=== PATIENT | male | born 1945 | race Caucasian/White ===

== ENCOUNTER 2023-09-03 12:45 | Outpatient (AMB) | payer MEDICARE, SELFPAY ==
--- NOTE | 2023-09-03 13:06 | MHC.OFFVIS ---
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 He has a 78-year-old male otherwise very healthy has had no prior significant cardiovascular risk factors of cardiovascular disease history. In generally good health. In February he would 1 episode when he developed palpitation subsequently developed significant jaw pain bilaterally. He had this pain last for couple of hours. He then rested but then had recurrent chest pain whole night. Did not seek emergency care. Following day he notices this sharp pain with exertion. However the symptoms dissipated. Since then he had 3 more episodes of jaw pain prior to the end of the year but did not pay much attention to it as the pain was less severe. Every time he has had jaw pain these symptoms of palpitations precede the jaw pain. Since then he started noticing irregular heartbeat with fluttering in his chest last thumping in his chest. The symptoms happen almost on every day basis. This symptoms are bothersome to him. However these are not life-limiting at this point time. Since then he has had 2 more episodes of jaw discomfort after thumping in his chest mostly at nighttime. Symptoms subsided very quickly. He has not had any heart failure symptoms. No lightheadedness, syncope. Currently not taking any significant medications. [facility] Medical History History of trigger finger Surgical History Hx of cholecystectomy Hx of shoulder surgery History of back surgery Hx of hernia repair Family History Father No problems noted. Mother No problems noted. Social History Patient Tobacco Use Status: Never used Tobacco Review of Systems Const Denies chills, Denies daytime sleepiness, Denies fatigue, Denies fever(s), Denies frequent falls, Denies poor appetite, Denies snoring, Denies stops breathing during sleep, Denies weakness, Denies weight gain and Denies weight loss Eyes Denies loss of vision ENT Denies dizziness and Denies hearing loss Card Denies chest pain, Denies claudication, Denies leg edema, Denies lightheadedness, Denies palpitations, Denies dyspnea, Denies dyspnea on exertion and Denies orthopnea Resp Denies cough, Denies excessive phlegm production, Denies dyspnea, Denies dyspnea on exertion, Denies snoring and Denies wheezing GI Denies abdominal pain, Denies hematochezia, Denies change in bowel habits, Denies nausea and Denies vomiting Denies dysuria and Denies urinary frequency Musc Denies arthralgias, Denies muscle weakness, Denies numbness and Denies other (frequent falls) Skin/Breast Denies nail changes and Denies rash Neuro Denies Abnormal speech present, Denies dizziness, Denies frequent falls, Denies loss of vision, Denies memory loss, Denies numbness and Denies weakness Psych Denies depression and Denies memory loss Endo Denies fatigue and Denies palpitations Carlo/Lymph Reports easy bruising and Reports other (anemia) Aller/Immun Denies wheezing Physical Exam Vital Signs: Last Vital Signs Pulse 61 09/03/23 13:10 BP 110/64 09/03/23 13:10 BMI result Body Mass Index 27.5 Const General: cooperative, comfortable, no acute distress, well developed, alert and awake Nutritional Appearance: average body habitus and well nourished Orientation/consciousness: patient oriented x3 Limitations: no limitations HEENT Head: Yes normocephalic and Yes atraumatic Neck Neck: Yes trachea midline, Yes supple and Yes no JVD Resp Effort & Inspection: normal respiratory effort Auscultation: clear to auscultation bilaterally Cardio Jugular venous distension: no JVD Palpation: normal PMI Rate: regular rate Rhythm: regular rhythm Heart sounds: S1 normal heart sound present, S2 normal heart sound present, no click, no gallops, no murmurs and no rubs GI Auscultation: normal bowel sounds Skin General skin exam: no rashes or lesions noted Neuro General: patient oriented x3 and no focal motor deficits Speech: No Abnormal speech present Extrem General: Yes no clubbing, cyanosis or edema Psych Appearance: grossly normal Office Procedures EKG Details: EKG shows normal sinus rhythm with normal EKG 34391-[id number], Complete Assessment & Plan Assessment & Plan (1) Atypical chest pain: Code(s): R07.89 - Other chest pain Category: Medical Plan: Patient with atypical discomfort with jaw discomfort which are concerning for myocardial ischemia although symptoms are not always typically present. However he had a very severe episode last February which could have been in his acute myocardial ischemic event. Since then he has had increased symptoms of palpitation, see below which were present possibly PVCs which could also be driven by myocardial ischemia. Given his baseline normal EKG in good functional capacity I have advised him to undergo stress test as soon as possible probably tomorrow. Further findings and workup based on the findings of the stress test. If at high workload is EKG is negative then probably alternative etiology for his chart discomfort including acid reflux disease needs to be pursued. If he has suboptimal stress test and/or as abnormal stress test will require further evaluation with either an angiogram or more imaging stress test. This was discussed with him. He understands agrees. He is advised to avoid strenuous exertion till we complete the stress testing. Meanwhile I have start him on aspirin therapy also advise metoprolol 25 mg daily. (2) Palpitations: Code(s): R00.2 - Palpitations Category: Medical Plan: Symptoms of palpitation highly suggestive extra systoles most likely PVCs. Further workup for will be performed with a Holter monitor to assess for presence of PVCs and also frequency of PVCs. Will start him on Toprol-XL as above. Will also obtain echocardiogram to evaluate for cardiac structure and function and to evaluate for any other abnormalities that could potentially cause his underlying cardiac arrhythmias. This was discussed with him. Avoidance of stimulants was discussed. Stress mitigation strategies were discussed. Will follow up in the clinic after above-mentioned test. Thank you for allowing me to partake in his care Orders: Orders CA echo transthoracic complete Today R00.2 - Palpitations ECG 5 day holter monitor Today R00.2 - Palpitations CA stress test Today R07.89 - Other chest pain Medications: New metoprolol succinate ER (Toprol XL) 25 mg PO DAILY 30 tabs 3RF R00.2 - Palpitations aspirin (Ecotrin Low Strength) 81 mg PO DAILY 30 tabs 1RF R00.2 - Palpitations Coding Level of Care Code New Pt Level 4 (90249) Diagnoses Atypical chest pain R07.89 Palpitations R00.2 CPT Codes EKG - CPT: 45603-Yisadlarryjulfbue, Complete ([id number])
[2023-09-03 13:10] VITALS: BP 110/64; PULSE 61; BMI 27.5
== END 2023-09-03 13:47 | disposition home or self-care (01) ==
PROVIDERS: PCP Internal Medicine; Visit Provider Internal Medicine Cardiovascular Disease
DX: R07.89 Other chest pain (principal); R00.2 Palpitations
CPT/HCPCS: 93010; 99204

== ENCOUNTER → 2023-09-03 12:45 | Outpatient (BNVA) | payer MEDICARE, SELFPAY | PROVIDERS: PCP Internal Medicine; Visit Provider Internal Medicine Cardiovascular Disease | DX: R07.89 Other chest pain (principal); R00.2 Palpitations | CPT/HCPCS: 93005; 99202 ==

== ENCOUNTER → 2023-09-04 09:48 | Outpatient (REF) | payer MEDICARE, SELFPAY ==
--- NOTE | 2023-09-04 09:53 | CA_ITS ---
Acquisition Time: 2023-09-04 09:58:28 Total Exercise Time: 00:06:42 Test Indications: jaw pain Medications: Protocol: BRIT Max HR: 122 BPM 85% of Pred: 143 BPM Max BP: 148/060 mmHG Max Work Load: 7.8 METS Exercise stress test exercise 6 min 42 sec of Brit protocol achieving 86% MPHR, with 3/10 left sided chest pain at peak, with mild SOB, without dizzness, without jaw pain, with isolated PACs, with normotensive response to exercise, without EKG changes. Equivocal stress test. Chest pain resolved withr est. Test reviewed with Dr. Angelo. Referred By: Janes Haney Overread By: Hilayr Martinez
== END ==
LOC: HO.CARD 09:48
PROVIDERS: PCP Internal Medicine; Visit Provider Internal Medicine Cardiovascular Disease
DX: R07.89 Other chest pain (principal)
CPT/HCPCS: 93017

== ENCOUNTER → 2023-09-04 09:53 | Outpatient (BNV) | payer MEDICARE, SELFPAY | PROVIDERS: PCP Internal Medicine; Visit Provider Nurse Practitioner | DX: R07.2 Precordial pain (principal); R06.02 Shortness of breath | CPT/HCPCS: 93016; 93018 ==

== ENCOUNTER → 2023-09-19 13:48 | Outpatient (REF) | payer MEDICARE, SELFPAY ==
--- NOTE | 2023-09-19 13:52 | CA_ITS ---
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 There is mildly increased left ventricular wall thickness. The visually estimated ejection fraction is between 55-60%. Normal global longitudinal strain. -20%. - E/E prime ratio is between 8 and 15 consistent with indeterminate filling pressures. - Mildly increased right ventricular cavity size. There is normal right ventricular systolic function. - The left atrium is moderately dilated. - There is mild mitral valve regurgitation. - There is mild dilatation of the sinuses of Valsalva measuring 3.80 cm and mild dilatation of the ascending aorta measuring 3.90 cm. Findings Left Ventricle Normal left ventricular size and systolic function. There is mildly increased left ventricular wall thickness. The visually estimated ejection fraction is between 55-60%. There is no evidence of regional wall motion abnormalities. Abnormal diastolic function is noted. Spectral Doppler is indicative of a pseudonormal filling pattern. E/E prime ratio is between 8 and 15 consistent with indeterminate filling pressures. Right Ventricle Mildly increased right ventricular cavity size. There is normal right ventricular systolic function. Atria The left atrium is moderately dilated. The right atrium is mildly dilated. Aortic Valve There is a normal trileaflet aortic valve. There is mild thickening of the aortic valve. There is no aortic valve stenosis. There is no aortic valve regurgitation. Mitral Valve Normal mitral valve structure and function. There is mild mitral valve regurgitation. There is no mitral valve stenosis. Pulmonic Valve Normal pulmonic valve structure and function. There is no pulmonic valve regurgitation. Tricuspid Valve Normal tricuspid valve structure. There is trace tricuspid valve regurgitation. Normal right atrial pressure. There is no evidence of pulmonary hypertension. Great Vessels There is mild dilatation of the sinuses of Valsalva measuring 3.80 cm and mild dilatation of the ascending aorta measuring 3.90 cm. The visualized portions of the pulmonary artery and branches are normal. Venous The inferior vena cava is normal in size and collapses greater than 50% with inspiration. Pericardium/Pleural There is no evidence of pericardial effusion. Measurements 2D Linear Measurements IVSd: 1.25 0.6-0.9/0.6-1.0 cm LVIDd: 5.38 3.9-5.3/4.2-5.9 cm LVIDd Index: 2.62 2.4-3.2/2.2-3.1 cm/m2 LVIDs: 3.34 2.0-3.6 cm LVPWd: 1.18 0.7-1.1 cm LA Diam: 4.10 2.7-3.8/3.0-4.0 cm LAIDs Index: 2.00 1.5-2.3 cm/m2 LV Mass: 333.49 67-162/88-224 g LV Mass Index: 162.68 43-95/49-115 g/m2 LVOT Diam: 2.00 3.0+(-)1.3 cm 2D Systolic Function EF 4C: 64.30 >55% EF 2C: 60.60 >55% EF BiP: 61.80 >55% Mitral Valve MV Pk E: 0.72 MV PK A: 0.39 MV Decel Time: 332.00 E/A: 1.90 E'Lateral: 7.72 E'Medial: 7.51 E/E' Med: 9.50 E/E' Lat: 9.30 PHT: 97.00 MVA PHT: 2.27 Decel Archuleta: 2.15 Aortic Valve AoV Pk Chucho: 1.12 AoV Mn Chucho: 0.79 AoV VTI: 0.27 AoV Pk Grad: 5.00 Aov Mn Grad: 3.00 LIBORIO Cont.VTI: 2.38 LVOT LVOT Pk Chucho: 0.87 LVOT Mn Chucho: 0.57 LVOT VTI: 0.21 LVOT Pk Grad: 3.00 LVOT Mn Grad: 2.00 LVOT Diam: 2.00 LVOT Area: 3.14 Diastolic Function MV Pk E: 0.72 MV Pk A: 0.39 E/A: 1.90 E'Medial: 7.51 E/E' Med: 9.50 E' Laterial: 7.72 E/E' Lat: 9.30 Right Ventricle TAPSE (mm): 36.90 TVS' Chucho: 13.30 Tricuspid Valve TR Pk Chucho: 1.61 TR Pk Grad: 10.00 RA Press: 3.00 RVSP: 13.00 Great Vessels Aorta Sinus of Valsalva: 3.80 2.0-3.5 cm Ao Asc: 3.90 2.1-3.4 cm Pulmonary Valve PV Pk Chucho: 1.45 Peak PV Grad: 8.00 Updated in Other Vendor System with Status of Final Jb Angelo MD electronically signed on 09/23/2023 4:00:02 PM with status of Final
--- NOTE | 2023-09-19 13:52 | HM_ITS ---
* Total monitoring time 4 days. * Underlying rhythm is sinus with an average rate of 53/Min. Range 41 to 78/Min. * Rare supraventricular and ventricular ectopy. * No sustained arrhythmias. * No significant pauses or high-grade AV blocks. * Patient markers used in association with sinus rhythm, sinus bradycardia, supraventricular ectopy. * Diary symptoms of flutter, strange feeling in chest, chest pain correlate with sinus rhythm, supraventricular ectopy. MTDD
== END ==
LOC: HO.CARD 13:48
PROVIDERS: PCP Internal Medicine; Visit Provider Internal Medicine Cardiovascular Disease
DX: R00.2 Palpitations (principal)
CPT/HCPCS: 93242; 93306

== ENCOUNTER → 2023-09-19 13:52 | Outpatient (BNV) | payer MEDICARE, SELFPAY | PROVIDERS: PCP Internal Medicine; Visit Provider Internal Medicine Cardiovascular Disease | DX: I34.0 Nonrheumatic mitral (valve) insufficiency (principal) | CPT/HCPCS: 93244; 93306; 93356 ==

== ENCOUNTER → 2023-12-12 09:21 | Outpatient (REF) | payer MEDICARE, SELFPAY ==
--- NOTE | ~2023-12-12 | NM_ITS ---
EXERCISE MYOCARDIAL PERFUSION STUDY INDICATION: Chest pain TECHNIQUE: The patient was brought in for an exercise perfusion study on 12/12/2023. Patient performed exercise as per Nirmal protocol and was injected 30 mCi of sestamibi once target heart rate was achieved. Images were obtained using the SPECT gamma camera interlaced with the gating device. Images were obtained in supine position. Resting perfusion study was performed on 12/13/2023. Patient was administered 30 mCi of sestamibi intravenously at rest. Images were then obtained in supine position. Images were processed with the software and compared side to side in short axis, horizontal long axis and vertical long axis views. Total DLP 130mGy-cm. FINDINGS: Raw images were reviewed. Arms by the patient's side. The stress perfusion study showed diminished tracer uptake in the distal part of inferolateral wall there is improvement with CT attenuation correction and hence could be components of diaphragmatic attenuation artifact. The gated study shows normal LV systolic function with calculated LVEF of 70%. LV cavity is normal in size. The gated study shows reduced contractility in the distal inferolateral wall. Resting study shows diminished tracer uptake in the distal part of inferolateral wall, similar to stress acquisition with only minimal improvement. With CT attenuation correction, there is some improvement and hence could've components of diaphragmatic attenuation artifact. Gating at rest reveals reduced contractility in the distal inferolateral wall. Gated LVEF 47% but visually appears higher. The findings are consistent with mostly fixed appearing distal inferolateral defect with minimal reversibility. NM/NM cardiolite stress test IMPRESSION: 1. 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 2. Gated LVEF is 70% during stress; 47% during rest but visually appears higher. 3. Transient ischemic dilatation not present. EKG component of the test reported separately.
--- NOTE | 2023-12-12 09:28 | CA_ITS ---
Acquisition Time: 2023-12-12 09:18:51 Total Exercise Time: 00:08:56 Test Indications: jaw pain, cp Medications: see h Protocol: BRIT Max HR: 121 BPM 84% of Pred: 143 BPM Max BP: 160/060 mmHG Max Work Load: 10.1 METS Exercise stress test exercise 8 min 56 sec of Brit protocol ach, without jaw pain, without chest pain, with mild to moderate SOB, without arrhythmias, with normotensive response to exercise, without EKG changes. Nuclear images pending. Test reviewed with Dr. Tilley. Referred By: Janes Haney Overread By: Hilary Martinez
== END ==
LOC: HO.CARD 09:21
PROVIDERS: PCP Internal Medicine; Visit Provider Internal Medicine Cardiovascular Disease
DX: R07.89 Other chest pain (principal); R00.2 Palpitations; R94.39 Abnormal result of other cardiovascular function study
CPT/HCPCS: 78452; 93017; A9500

== ENCOUNTER → 2023-12-12 09:28 | Outpatient (BNV) | payer MEDICARE, SELFPAY | PROVIDERS: PCP Internal Medicine; Visit Provider Nurse Practitioner | DX: R07.9 Chest pain, unspecified (principal) | CPT/HCPCS: 78452; 93016; 93018 ==

== ENCOUNTER 2024-01-20 09:54 | Outpatient (AMB) | payer MEDICARE, SELFPAY ==
[2024-01-20 10:17] VITALS: BP 130/60; PULSE 59; BMI 27.6
--- NOTE | 2024-01-20 10:17 | A.OFFVIS_ITS ---
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 Following last visit he underwent an echocardiogram, nuclear stress test and Holter monitor and now presents for follow-up. Today he reports that he had an episode of jaw pain in June. Did not have a recurrent episode until 8 days ago. 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 At the end of the day he sat down to rest, then when he got up again he noticed a brief heart palpitation followed by the onset of severe bilateral jaw pain. This episode was his longest yet, lasting 1 hour. He denies having any chest discomfort at rest or with activity. He does feel occasional heart palpitations lasting only seconds. His episodes of jaw pain in the past have each been preceded by a brief heart palpitation. He has no presyncope, syncope, falls. No shortness of breath, PND, orthopnea or edema. In all he has had 5-6 episodes of this severe jaw pain over the last 10 months. He says the pain is 10/10. He has no pain with movement of his jaw. He has no dental issues to account for this symptom. [facility] Medical History History of trigger finger Surgical History Hx of cholecystectomy Hx of shoulder surgery History of back surgery Hx of hernia repair Family History Father No problems noted. Mother No problems noted. Social History Patient Tobacco Use Status: Never used Tobacco Review of Systems Const All systems reviewed & are unremarkable except as noted in HPI and below ENT Details: Jaw pain episodes Denies dizziness Card Details: intermittent palpitation - brief Denies chest pain, Denies chest pain at rest, Denies chest pain with activity, Denies rapid heart rate, Denies pedal edema, Denies edema, Denies leg edema, Denies lightheadedness, Denies palpitations, Denies dyspnea, Denies dyspnea on exertion and Denies orthopnea Resp Denies cough, Denies dyspnea and Denies dyspnea on exertion GI Denies hematochezia and Denies change in stool character Musc Denies abnormal gait, Denies limited range of motion, Denies muscle cramps, Denies muscle weakness, Denies numbness, Denies radiating pain into limb, Denies stiffness and Denies tingling Neuro Denies abnormal gait, Denies dizziness, Denies numbness and Denies tingling Endo Denies palpitations Physical Exam Vital Signs: Last Vital Signs Pulse 59 01/20/24 10:17 BP 130/60 01/20/24 10:17 BMI result Body Mass Index 27.6 Const General: cooperative, healthy appearing, comfortable and no acute distress Orientation/consciousness: patient oriented x3 Neck Neck: Yes normal visual inspection Resp Effort & Inspection: normal respiratory effort Auscultation: clear to auscultation bilaterally, no crackles, no rales, no rhonchi and no wheezes Cardio Rate: regular rate Rhythm: regular rhythm Heart sounds: S1 normal heart sound present, S2 normal heart sound present, no murmurs and no rubs Neuro General: patient oriented x3 Extrem General: Yes normal to inspection and No no pedal edema Psych Appearance: grossly normal Mental Status: mental status grossly normal Speech and movement: Normal speech and movement present Assessment & Plan Assessment & Plan (1) Atypical chest pain: Code(s): R07.89 - Other chest pain Category: Medical Plan: Atypical sounding discomfort, bilateral jaw pain that is briefly preceded by heart palpitation. His 1st episode of jaw pain started February 2023. Since then he has had 5-6 episodes. His last episode occurred 8 days ago and lasted 1 hour with pain 10/10. No associated symptoms. Not brought on by exertional activities. His EKG done last visit shows normal sinus rhythm with no acute ST or T-wave abnormalities, rate 61. A echocardiogram was done 09/19/2023 showing EF 55-60%, mild increase in the RV size, left atrium moderately dilated, mild MR, ascending aorta 3.9 cm. He had an exercise nuclear stress test done 12/12/2023 with exercise 9 minutes with [id number] shortness of breath, no chest discomfort, no EKG changes of ischemia, nuclear imaging showed infarct in the distal inferior lateral wall with minimal ischemia. Did have a Holter monitor on 09/19/2023 for 4 days showing sinus rhythm with average heart rate 53, heart rate range 41 to 78, rare SVE and VE. Test results reviewed with him in detail. He has no known cardiac history and no significant cardiac risk factors. In order to further evaluate his symptom and coronary arteries a diagnostic cardiac catheterization will need to be performed. Procedure reviewed, potential findings reviewed, discussed risks including bleeding, infection, MS, stroke, YASHIRA. Preprocedure labs ordered. Will continue aspirin, metoprolol. Will start on isosorbide 30 mg daily. Use of each medication reviewed with him. Discussed statin use. He tells me his cholesterol has always been normal. Will check with his PCP regarding most recent cholesterol levels. Then anticipate statin to be ordered. Instructed to seek emergency medical care if he has recurrent episode of bilateral jaw discomfort. Cardiology follow-up 2 weeks post cath, sooner if needed. (2) Palpitations: Code(s): R00.2 - Palpitations Category: Medical Plan: As above. Palpitation most likely consistent with extrasystoles. (3) Abnormal nuclear stress test: Code(s): R94.39 - Abnormal result of other cardiovascular function study Category: Medical Plan: As above Plan Time spent on chart review, documentation, interview and assessment Orders: Orders Cardiac Cath LT Diagnostic Today R07.89 - Other chest pain, R94.39 - Abnormal result of other cardiovascular function study Basic Metabolic Panel Today R07.89 - Other chest pain Complete Blood Count Auto Diff Today R07. - Other chest pain Prothrombin Time INR Today R07.89 - Other chest pain Medications: New isosorbide mononitrate ER 30 mg PO DAILY 30 tabs 2RF Coding Level of Care Code Est Pt Level 4 (43458) Diagnoses Atypical chest pain R07.89 Palpitations R00.2 Abnormal nuclear stress test R94.39 Time Spent (min) 40
== END 2024-01-20 11:31 | disposition home or self-care (01) ==
PROVIDERS: PCP Internal Medicine; Visit Provider Nurse Practitioner Family
DX: R07.89 Other chest pain (principal); R00.2 Palpitations; R94.39 Abnormal result of other cardiovascular function study
CPT/HCPCS: 99214

== ENCOUNTER 2024-01-20 09:54 | Outpatient (REF) | payer MEDICARE, SELFPAY ==
[2024-01-20 12:05] LABS: MANUAL DIFF FLAG NO
[2024-01-20 12:30] LABS: Basophils Percent Auto 0.8 % (0-2); Eosinophils Absolute Auto 0.2 X10*3/uL (0.0-0.4); Hematocrit 43.4 % (42.0-52.0); Hemoglobin 14.6 g/dl (14.0-18.0); Imm Gran Abs Auto 0.01 X10*3/uL (0.00-0.03); Imm Gran Pct Auto 0.2 % (0.0-0.4); Lymphocytes Absolute Auto 0.9 X10*3/uL (1.2-4.9); Lymphocytes Percent Auto 18.1 % (20-40); Mean Corpuscular HGB Conc 33.6 g/dl (31.0-36.0); Mean Corpuscular Hemoglobin 29.5 pg (27.0-33.0); Mean Corpuscular Volume 87.7 fL (80.0-98.0); Monocytes Absolute Auto 0.4 X10*3/uL (0.1-1.2); Monocytes Percent Auto 8.9 % (2-11); Neutrophils Absolute Auto 3.4 x10*3/uL (2.0-8.3); Platelet Count 205 X10*3/uL (160-400); Red Blood Count 4.95 X10*6/uL (4.60-5.80); Red Cell Distribution Width 13.2 % (11.0-16.0); White Blood Count 4.9 X10*3/uL (4.8-10.8)
[2024-01-20 12:45] LABS: Prothrombin Time 11.3 SEC (10.9-12.4)
[2024-01-20 13:01] LABS: Anion Gap 11 (12-20); Blood Urea Nitrogen 20 mg/dL (9-16); Carbon Dioxide 27 mmol/L (22-29); Chloride 109 mmol/L (96-108); Estimated Glomerular Filt Rate > 60; Glucose Random 105 mg/dL (60-115); Potassium 4.8 mmol/L (3.3-5.1); Sodium 142 mmol/L (135-145)
== END 2024-01-20 09:55 | disposition home or self-care (01) ==
LOC: HO.LAB 09:54
PROVIDERS: PCP Internal Medicine; Visit Provider Nurse Practitioner Family
DX: R07.89 Other chest pain (principal); R00.2 Palpitations; R94.39 Abnormal result of other cardiovascular function study; Z79.01 Long term (current) use of anticoagulants
CPT/HCPCS: 36415; 80048; 85025; 85610; 99212

== ENCOUNTER → 2024-02-11 23:59 | Outpatient (BNV) | payer MEDICARE, SELFPAY | PROVIDERS: PCP Internal Medicine; Visit Provider Internal Medicine Cardiovascular Disease | DX: R07.89 Other chest pain (principal); R93.1 Abnormal findings on diagnostic imaging of heart and coronary circulation | CPT/HCPCS: 93458; 99152 ==

== ENCOUNTER 2024-02-27 14:25 | Outpatient (AMB) | payer MEDICARE, SELFPAY ==
[2024-02-27 14:45] VITALS: BP 118/72; PULSE 50; BMI 27.6
--- NOTE | 2024-02-27 14:45 | A.OFFVIS_ITS ---
Vital Signs 02/27/24 14:45 Height 5 ft 10 in Weight 192 lb 3.889 oz BMI 27.6 BP 118/72 Blood Pressure Location Lt brachial Position Sitting Pulse 50 Pulse Source Pulse Oximeter Intake Visit Reasons: 2 wk follow up Day Care Assistant Required: No Allergies celecoxib [From Celebrex] Allergy (Mild, Verified 02/27/24 14:51) Cough Medication List - Last Reconciled 02/27/24 by EDDIE Watson gabapentin 300 mg PO BEDTIME isosorbide mononitrate ER 30 mg PO DAILY meloxicam 15 mg PO DAILY metoprolol succinate ER (Toprol XL) 25 mg PO BID zolpidem 2.5 mg PO BEDTIME PRN HPI HPI 2 wk follow up: Details: Ayush is a 79-year-old male with no significant cardiac risk factors who has had episodes of significant bilateral jaw pain in the last year. He has undergone c ardiac testing and recently had a cardiac catheterization and now presents for follow-up. Today he reports that since the cardiac catheterization he has had 5-6 episodes of his palpitation and jaw discomfort. On last visit he was started on isosorbide and does not feel this medication has helped him at all. At the time of the cardiac catheterization he was instructed to increase his metoprolol to b.i.d. which he has done. He also believes this has not helped to reduce his symptoms. He has not found any triggers to his symptoms. He does recall that the episodes happen at rest and not during physical activity. He denies having any chest discomfort at rest or with activity. He does feel occasional heart palpitations lasting only seconds. His episodes of jaw pain in the have each been preceded by a brief heart palpitation. He has no presyncope, syncope, falls. No shortness of breath, PND, orthopnea or edema. He has no pain with movement of his jaw. He has no dental issues to account for this symptom. Right radial catheterization site is feeling good. [facility] Medical History History of trigger finger Surgical History Hx of cholecystectomy Hx of shoulder surgery History of back surgery Hx of hernia repair Family History Father No problems noted. Mother No problems noted. Social History Patient Tobacco Use Status: Never used Tobacco Review of Systems Const All systems reviewed & are unremarkable except as noted in HPI and below ENT Denies dizziness Card Details: Palpitation with discomfort up to his jaw Denies chest pain, Denies chest pain at rest, Denies chest pain with activity, Denies rapid heart rate, Denies pedal edema, Denies edema, Denies leg edema, Denies lightheadedness, Denies palpitations, Denies dyspnea, Denies dyspnea on exertion and Denies orthopnea Resp Denies cough, Denies dyspnea and Denies dyspnea on exertion GI Denies hematochezia and Denies change in stool character Musc Denies abnormal gait, Reports limited range of motion, Reports muscle cramps, Denies muscle weakness, Denies numbness, Denies radiating pain into limb, Denies stiffness and Denies tingling Neuro Denies abnormal gait, Denies dizziness, Denies numbness and Denies tingling Endo Denies palpitations Physical Exam Vital Signs: Last Vital Signs Pulse 50 02/27/24 14:45 BP 118/72 02/27/24 14:45 BMI result Body Mass Index 27.6 Const General: cooperative, healthy appearing, comfortable and no acute distress Orientation/consciousness: patient oriented x3 Neck Neck: Yes normal visual inspection Resp Effort & Inspection: normal respiratory effort Auscultation: clear to auscultation bilaterally, no crackles, no rales, no rhonchi and no wheezes Cardio Rate: regular rate Rhythm: regular rhythm Heart sounds: S1 normal heart sound present, S2 normal heart sound present, no murmurs and no rubs Neuro General: patient oriented x3 Extrem General: Yes normal to inspection and No no pedal edema Psych Appearance: grossly normal Mental Status: mental status grossly normal Speech and movement: Normal speech and movement present Assessment & Plan Assessment & Plan (1) Atypical chest pain: Code(s): R07.89 - Other chest pain Category: Medical Plan: Atypical sounding discomfort, bilateral jaw pain that is briefly preceded by heart palpitation. His 1st episode of jaw pain started February 2023. At the time of last visit he had reported having had 5-6 episodes, with pain as severe as 10/10. Not brought on by exertional activities. His EKG on recent visit shows normal sinus rhythm with no acute ST or T-wave abnormalities, rate 61. A echocardiogram was done 09/19/2023 showing EF 55-60%, mild increase in the RV size, left atrium moderately dilated, mild MR, ascending aorta 3.9 cm. 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 Did have a Holter monitor on 09/19/2023 for 4 days showing sinus rhythm with average heart rate 53, heart rate range 41 to 78, rare SVE and VE. On last visit test results reviewed with him in detail. He has no known cardiac history and no significant cardiac risk factors. In order to furt her evaluate his symptom and coronary arteries he underwent a diagnostic cardiac catheterization showing normal coronary arteries. This is very reassuring. At the time of the procedure he was instructed to increase his metoprolol up to 25 mg b.i.d. to help with the symptom of palpitations. Today he reports that the increase in metoprolol has not helped. He has continued to have brief episodes of palpitation and some jaw discomfort as well. His resting heart rate is 50. Will have him reduce his metoprolol back to once daily. Will have him stop isosorbide as he has normal coronaries. Will order a cardiac event monitor to see exactly what his heart rhythm is doing at the time he is feeling these symptoms. He is agreeable to this plan. Cardiology office visit in 2-3 months, sooner if needed. (2) Palpitations: Code(s): R00.2 - Palpitations Category: Medical Plan: As above. Palpitation most likely consistent with extrasystoles based on testing to date. Will be checking a cardiac event monitor. (3) Abnormal nuclear stress test: Code(s): R94.39 - Abnormal result of other cardiovascular function study Category: Medical Plan: As above - false-positive (4) S/P cardiac catheterization: Comment: 02/11/2024 normal coronary arteries Code(s): Z98.890 - Other specified postprocedural states Category: Surgical Plan: Right radial catheterization site well healed Plan Time spent on chart review, documentation, interview and assessment Orders: Orders ECG 30 day event monitor 02/27/24 R00.2 - Palpitations, R07.89 - Other chest pain Medications: New metoprolol succinate ER (Toprol XL) 25 mg PO BID 30 tabs 5RF R00.2 - Palpitations Discontinued isosorbide mononitrate ER Discontinued Reason: Doctor's Order 30 mg PO DAILY 30 tabs 2RF Coding Level of Care Code Est Pt Level 4 (68817) Diagnoses Atypical chest pain R07.89 Palpitations R00.2 Abnormal nuclear stress test R94.39 S/P cardiac catheterization Z98.890 Time Spent (min) 28
== END 2024-02-27 15:25 | disposition home or self-care (01) ==
LOC: HO.HCS 14:25
PROVIDERS: PCP Internal Medicine; Visit Provider Nurse Practitioner Family
DX: R07.89 Other chest pain (principal); R00.2 Palpitations; R94.39 Abnormal result of other cardiovascular function study; Z98.890 Other specified postprocedural states
CPT/HCPCS: 99214

== ENCOUNTER → 2024-02-27 14:25 | Outpatient (BNVA) | payer MEDICARE, SELFPAY | PROVIDERS: PCP Internal Medicine; Visit Provider Nurse Practitioner Family | DX: R07.89 Other chest pain (principal); R00.2 Palpitations; R94.39 Abnormal result of other cardiovascular function study; Z98.890 Other specified postprocedural states | CPT/HCPCS: 99212 ==

== ENCOUNTER → 2024-03-05 10:48 | Outpatient (REF) | payer MEDICARE, SELFPAY ==
--- NOTE | 2024-03-05 13:58 | HM_ITS ---
Cardiac event monitor Indication: Palpitations Technique: Patient was hooked up to cardiac event monitor from 03/05/2024 to 04/04/2024 for total period of 30 days. Where time was 19 days. Findings: Baseline rhythm predominantly is normal sinus rhythm with average heart rate of 58 beats per minute. Frequent sinus bradycardia noted with 80% of time heart rate below 60 beats per minute. No significant pauses noted. Few episodes of paroxysmal atrial tachycardia noted. There is intermittent episodes of atrial fibrillation noted with total burden of 1.1% with fastest heart rate during atrial fibrillation of 131 beats per minute. There were occasional PACs and PVCs noted Patient complained of multiple symptoms, complained of fluttering in his chest that correlated with either atrial tachycardia, PACs or runs of atrial fibrillation. Conclusion: 1. Baseline rhythm was normal sinus rhythm with frequent sinus bradycardia without significant pauses 2. Intermittent episodes of atrial fibrillation with total burden of 1.1% 3. Patient reported symptoms of fluttering in his chest correlating either with atrial tachycardia, atrial fibrillation or PACs MTDD
== END ==
LOC: HO.CARD 10:48
PROVIDERS: PCP Internal Medicine; Visit Provider Nurse Practitioner Family
DX: R07.89 Other chest pain (principal); R00.2 Palpitations
CPT/HCPCS: 93270

== ENCOUNTER → 2024-03-05 13:58 | Outpatient (BNV) | payer MEDICARE, SELFPAY | PROVIDERS: PCP Internal Medicine; Visit Provider Internal Medicine Cardiovascular Disease | DX: R00.2 Palpitations (principal); R07.9 Chest pain, unspecified | CPT/HCPCS: 93272 ==

== ENCOUNTER 2024-04-17 09:40 | Outpatient (AMB) | payer MEDICARE, SELFPAY ==
--- NOTE | 2024-04-17 09:42 | AM.OFFVISNUR ---
Intake Visit Reasons: EKG Flecainide Intake Note: Ekg on flecainide feeling good no more jaw pain some palpitations but brief Allergies celecoxib [From Celebrex] Allergy (Mild, Verified 02/27/24 14:51) Cough Assessment & Plan Assessment & Plan Orders: Orders AMB EKG-In Office Today R00.2 - Palpitations, R07.89 - Other chest pain
== END 2024-04-17 09:53 | disposition home or self-care (01) ==
PROVIDERS: PCP Internal Medicine; Visit Provider Nurse Practitioner Family
DX: R00.1 Bradycardia, unspecified (principal); I44.0 Atrioventricular block, first degree
CPT/HCPCS: 93010

== ENCOUNTER → 2024-04-17 09:40 | Outpatient (BNVA) | payer MEDICARE, SELFPAY | PROVIDERS: PCP Internal Medicine; Visit Provider Nurse Practitioner Family | DX: R00.2 Palpitations (principal); R07.89 Other chest pain | CPT/HCPCS: 93005 ==

== ENCOUNTER 2024-05-08 11:21 | Outpatient (REF) | payer MEDICARE, SELFPAY ==
--- NOTE | ~2024-05-08 | XR_ITS ---
CLINICAL HISTORY: CHRONIC BILATERAL LOW BACK PAIN, Radiographs of the pelvis and bilateral hips, 5 views Comparison: None Findings: No fracture or dislocation. Nuqf-jp-lwnoktju degenerative change of the hips. Mild degenerative change of the pubic symphysis and sacroiliac joints. Moderate to severe lower lumbar degenerative change. Bone mineralization is decreased. Vascular calcifications. No soft tissue swelling. Impression: No acute findings. This document has been electronically signed by: Francesca Vinson MD on 05/08/2024 15:45:06
== END 2024-05-08 11:22 | disposition home or self-care (01) ==
LOC: HO.XRAY 11:21
PROVIDERS: PCP Internal Medicine; Visit Provider Internal Medicine
DX: M54.50 Low back pain, unspecified (principal); G89.29 Other chronic pain
CPT/HCPCS: 73522

== ENCOUNTER → 2024-05-08 11:29 | Outpatient (BNV) | payer MEDICARE, SELFPAY | PROVIDERS: PCP Internal Medicine; Visit Provider Radiology Diagnostic Radiology | DX: M54.50 Low back pain, unspecified (principal) | CPT/HCPCS: 73522 ==

== ENCOUNTER 2024-05-25 15:21 | Outpatient (AMB) | payer MEDICARE, SELFPAY ==
[2024-05-25 15:28] VITALS: BP 114/62; PULSE 55; BMI 27.8
--- NOTE | 2024-05-25 15:28 | A.OFFVIS_ITS ---
Vital Signs 05/25/24 15:28 Height 5 ft 10 in Weight 194 lb 0.108 oz BMI 27.8 BP 114/62 Blood Pressure Location Rt brachial Position Sitting Pulse 55 Pulse Source Monitor Intake Visit Reasons: 3 mth f/up Knee Bolter Required: No Allergies celecoxib [From Celebrex] Allergy (Mild, Verified 05/25/24 15:30) Cough Medication List - Last Reconciled 05/25/24 by Brandi Leone, CO[facility] flecainide 100 mg PO Q12H gabapentin 300 mg PO BEDTIME metoprolol succinate ER (Toprol XL) 25 mg PO DAILY rivaroxaban (Xarelto) 20 mg PO DAILY zolpidem 2.5 mg PO BEDTIME PRN HPI HPI 3 mth f/up: Details: Donald is a 79-year-old male with no significant cardiac risk factors who has had episodes of significant bilateral jaw pain in the last year. He has undergone cardiac testing including cardiac catheterization which showed normal coronary arteries. Since last visit he underwent a cardiac event monitor which did show paroxysmal atrial fibrillation. He is now on metoprolol, flecainide and Xarelto and presents for follow-up. Today he reports he has been doing well since the start of his medication management for AFib. When wearing the cardiac event monitor he was able to correlate an episode of jaw pain with PAF. He has not had jaw pain since that time. He does not get chest discomfort, shortness of breath, lightheadedness. He has good activity tolerance. He has had no bleeding issues. He is asking about ablation and Watchman procedure at this visit. [facility] Medical History History of trigger finger Surgical History Hx of cholecystectomy Hx of shoulder surgery History of back surgery Hx of hernia repair Family History Father No problems noted. Mother No problems noted. Social History Patient Tobacco Use Status: Never used Tobacco Review of Systems Const All systems reviewed & are unremarkable except as noted in HPI and below ENT Denies dizziness Card Details: brief palpitations Denies chest pain, Denies chest pain at rest, Denies chest pain with activity, Denies rapid heart rate, Denies pedal edema, Denies edema, Denies leg edema, Denies lightheadedness, Denies palpitations, Denies dyspnea, Denies dyspnea on exertion and Denies orthopnea Resp Denies cough, Denies dyspnea and Denies dyspnea on exertion GI Denies hematochezia and Denies change in stool character Musc Denies abnormal gait, Denies limited range of motion, Denies muscle cramps, Denies muscle weakness, Denies numbness, Denies radiating pain into limb, Denies stiffness and Denies tingling Neuro Denies abnormal gait, Denies dizziness, Denies numbness and Denies tingling Endo Denies palpitations Physical Exam Vital Signs: Last Vital Signs Pulse 55 05/25/24 15:28 BP 114/62 05/25/24 15:28 BMI result Body Mass Index 27.8 Const General: cooperative, healthy appearing, comfortable and no acute distress Orientation/consciousness: patient oriented x3 Neck Neck: Yes normal visual inspection Resp Effort & Inspection: normal respiratory effort Auscultation: clear to auscultation bilaterally, no crackles, no rales, no rhonchi and no wheezes Cardio Rate: regular rate Rhythm: regular rhythm Heart sounds: S1 normal heart sound present, S2 normal heart sound present, no murmurs and no rubs Neuro General: patient oriented x3 Extrem General: Yes normal to inspection and No no pedal edema Psych Appearance: grossly normal Mental Status: mental status grossly normal Speech and movement: Normal speech and movement present Office Procedures EKG Details: Today sinus bradycardia with 1st degree avb, rate 55, QTc 428ms [id number], Complete Assessment & Plan Assessment & Plan (1) Atypical chest pain: Code(s): R07.89 - Other chest pain Category: Medical Plan: Atypical sounding discomfort, bilateral jaw pain that is briefly preceded by heart palpitation. His 1st episode of jaw pain started February 2023. At the time of last visit he had reported having had 5-6 episodes, with pain as severe as 10/10. Not brought on by exertional activities. His EKG on recent visit shows normal sinus rhythm with no acute ST or T-wave abnormalities, rate 61. A echocardiogram was done 09/19/2023 showing EF 55-60%, mild increase in the RV size, left atrium moderately dilated, mild MR, ascending aorta 3.9 cm. 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 Did have a Holter monitor on 09/19/2023 for 4 days showing sinus rhythm with average heart rate 53, heart rate range 41 to 78, rare SVE and VE. In order to further evaluate his symptom and coronary arteries he underwent a diagnostic cardiac catheterization showing normal coronary arteries. This is very reassuring. All the above was reviewed with him. On last visit occurred event monitor was ordered to further assess for arrhythmia. - the cardiac event monitor does show episodes of paroxysmal atrial fibrillation, burden 1.1%. This was discussed with him over the phone since last visit. He was able to correlate an episode of his jaw pain with PAF as seen on the RD. He was initially put on metoprolol then flecainide was added to further suppress his arrhythmia. Xarelto was added for anticoagulation. Today he reports no recurrent episodes of jaw pain since starting med management for PAF. (2) Paroxysmal atrial fibrillation: Code(s): I48.0 - Paroxysmal atrial fibrillation Category: Medical Plan: New finding of paroxysmal atrial fibrillation on recent cardiac event monitor. He has an atypical presentation with mild palpitations and severe jaw pain. He has done well with medical management so far including metoprolol and flecainide. His EKG today showing sinus bradycardia, first-degree AV block, rate 55. He currently feels well with no concerning symptoms. He is asking about AFib ablation. This would be a reasonable option since his AFib is so symptomatic. He wants to think about it further and discuss more at next visit. He is hopeful to get off medications in the future. He is also asking about Watchman device. At this time he is tolerating Xarelto without any bleeding i ssues. Since he is tolerating Xarelto informed him that we would continue that at this time. He may not qualify for Watchman device presently. (3) Palpitations: Code(s): R00.2 - Palpitations Category: Medical Plan: As above (4) Abnormal nuclear stress test: Code(s): R94.39 - Abnormal result of other cardiovascular function study Category: Medical Plan: As above - false-positive (5) S/P cardiac catheterization: Comment: 02/11/2024 normal coronary arteries Code(s): Z98.890 - Other specified postprocedural states Category: Surgical Plan: As above Plan Time spent on chart review, documentation, interview and assessment Coding Level of Care Code Est Pt Level 4 (88643) Complex EM visit Add On G2211 Diagnoses Atypical chest pain R07.89 Paroxysmal atrial fibrillation I48.0 Palpitations R00.2 Abnormal nuclear stress test R94.39 S/P cardiac catheterization Z98.890 CPT Codes EKG - CPT: 32119-[id number], Complete ([id number]) Time Spent (min) 36
--- OUTSIDE RECORDS SUMMARY | 2024-05-25 19:24 | XMS_ITS | Encounter Summary ---
Author Organization [facility] Address [phone] [place] [address] Care Team Providers Care Senior Data Analyst Name Role Phone Kevin Patel MD Unavailable [phone] Kevin Patel MD Primary Care Provider [phone] Reason for Visit * Reason Onset Date Comments Results 05/11/2024 Encounter Details Date Type Department Care Team (Late st Contact Info) Description 05/11/2024 Telephone [facility] Internal Medicine [address], [place] [id number] Kevin Patel MD [address] [place] [address] [email or web address] Results Social History Tobacco Use Types Packs/Day Years Used Date Smoking Tobacco: Never Smokeless Tobacco: Never Alcohol Use Standard Drinks/Week Comments Yes 0 (1 standard drink = 0.6 oz pure alcohol) very rare, a couple of 6 pack (of beer) a year at most Child or Family Care Answer Date Record ed Do you have problems with on e of the following making it difficult for you to work, study, or receive health care? No 09/22/2020 Education Answer Date Recorded Are you interested in more education? Not on ekaterina e 09/24/2022 Are you concerned about learning? Not on file 09/24/2022 No 09/24/2022 No 09/24/2022 Food Answer Date Recorded Within the past 6 months we worried whether our food would run out before we got money to buy more. Never True 09/22/2020 Within the past 6 months the food we bought just didn't last and we didn't have enough money to get more. Never True Residential Stability Answer Date Recor ded What is your housing situation today? I have lindsey pelayo 09/22/2020 How many times have you move d in the past 12 months? Zero (I did not move) 09/22/2020 06 Are you worried that in t he next 2 months, you may not have your own housing to live in? No 09/22/2020 Paying for Meds Answer Date Recorded Do you have trouble paying for medicines? No 09/22/2020 Paying Utility Bills Answer Date Record ed Do you have trouble paying your heating or elect ricity bill? No 09/22/2020 Transportation Answer Date Recorded Has the lack of transportati on kept you from medical appointments or from getting medications? No 09/22/2020 Unemployment Answer Date Recorded Are you currently unemployed or working on a part-time or temporary basis, and looking for work? No 09/22/2020 Digital Access Answer Date Recorded No 09/21/2022 No 09/21/2022 Reliable internet access at home? Not on file 09/21/2022 Device with a working camera? Not on file Intimate Partner Violence Answer Date R ecorded Denied Basic Needs Not on file 10/01/2023 In the past 12 months have y ou been in a relationship with a person who hurts, threatens, or tries to control you? No 10/01/2023 Worried food would run out Not on file 09/30 In the past 12 months have y ou been in a relationship with a person who hurts, threatens, or tries to control you? No 10/01/2023 Sex and Gender Information Value Date Recorded Sex Assigned at Not on file Gender Identity Not on file Sexual Orientation Not on file documented as of this encounter Progress Notes * Martita Villalpando RN - 05/12/2024 6:59 AM EST Labs show elevated blood sugar which is normal if not fasting. Mercury level pending Written by Kevin Patel MD on 05/10/2024 10:55 PM EST Seen by patient Donald Mcpherson on 05/11/2024 8:28 AM * Martita Villalpando RN - 05/11/2024 8:21 AM EST LVM to call the office * Martita Villalpando RN - 05/11/2024 8:20 AM EST Images from the original note were not included. Kevin Patel MD [facility] Rn Labs show elevated blood sugar which is normal if not fasting. Mercury level pending documented in this encounter Plan of Treatment Upcoming Encounters Date Type Department Care Team (Late st Contact Info) Description 10/13/2024 1:00 PM EDT Appointment [facility] Internal Medicine [address] [place] [address] Kevin Patel MD [address] [place] [address] [email or web address] documented as of this encounter Visit Diagnoses Not on filedocumented in this encounter Additional Health Concerns Assessment Noted Time PHQ-9 Depression Total Score: 7 09/29/19 23 2:57 PM EDT PHQ-2 Depression Total Score: 0 10/01/19 24 1:56 PM EDT documented as of this encounter Care Teams Senior Data Analyst Relationship Specialty Start Date End Date Kevin Patel MD [address] [place] [address] [email or web address] PCP - General Internal Medicine 02/25/17 Kevin Patel MD [address] [place] [id number] [email or web address] Insurance Assigned Provider 08/03/23 documented as of this encounter Additional Source Comments The information contained in this document represents components of the legal health record. It is not the complete legal health record.[facility]
--- OUTSIDE RECORDS SUMMARY | 2024-05-25 19:24 | XMS_ITS | Encounter Summary ---
Author Organization [facility] Address [phone] [place] [address] Care Team Providers Care Car Conditioner Name Role Phone Kevin Patel MD Unavailable [phone] Kevin Patel MD Primary Care Provider [phone] Encounter Details Date Type Department Care Team (Late st Contact Info) Description 05/13/2024 Orders Only [facility] Internal Medicine [address] [place] [address] Provider, MD En[address] [place] [address] Social History Tobacco Use Types Packs/Day Years [...] on file documented as of this encounter Plan of Treatment Upcoming Encounters Date Type Department Care Team (Late st Contact Info) Description 10/13/2024 1:00 PM EDT Appointment [facility] Internal Medicine [address] [place] [address] Kevin Patel MD [address] [place] [address] documented as of this encounter Procedures Procedure Name Priority Date/Time Associated Diagnosis Comments OUTSIDE XR EXTREMITY LOWER REPORT ONLY Routine 05/08/2024 10:38 AM EST documented in this encounter Results * Outside XR Extremity Lower Report Only (05/08/2024 10:38 AM EST) Historical Provider MD SINGLETARY XR LOWER EXTR EMITY documented in this encounter Visit Diagnoses Not on filedocumented in this encounter Additional Health Concerns Assessment Noted Time PHQ-9 Depression Total Score: 7 09/29/19 23 2:57 PM EDT PHQ-2 Depression Total Score: 0 10/01/19 24 1:56 PM EDT documented as of this encounter Care Teams Car Conditioner Relationship Specialty Start Date End Date Kevin Patel MD [address] [place] [address] PCP - General Internal Medicine 02/25/17 Kevin Patel MD [address] [place] [address] Insurance Assigned Provider 08/03/23 documented as of this encounter Additional Source Comments The information contained in this document represents components of the legal health record. It is not the complete legal health record[facility]
--- OUTSIDE RECORDS SUMMARY | 2024-05-25 19:25 | XMS_ITS | Encounter Summary ---
Author Organization [facility] Address [phone] [place] [address] Care Team Providers Care Crane Oiler Name Role Phone Kevin Patel MD Unavailable [phone] Kevin Patel MD Primary Care Provider [phone] Encounter Details Date Type Department Care Team (Latest Contact Info) Description 05/08/2024 8:49 AM EST - 05/08/2024 11:59 PM EST Hospital Encounter [facility] [address] [place] [address] Kevin Patel MD [address] [place] [address] [email or web address] Discharge Disposition: Home or Self Care Social History Tobacco Use Types Packs/Day Years [...] on file documented as of this encounter Medications at Time of Discharge Medication Sig Dispensed Refills Start Date End Date cholecalciferol (VITAMIN D3) 2,000 unit tablet Take 2,000 Units by mouth daily. fexofenadine (BENJAMIN ALLERGY) 180 MG tablet Take 180 mg by mouth as needed. 02/11/2024 flecainide (TAMBOCOR) 100 MG tablet Take 1 tablet by mouth 2 (two) times a day. 03/19/2024 gabapentin (NEURONTIN) 300 MG capsuleIndications:Chron ic bilateral low back pain without sciatica take 1 capsule by mouth every day in the evening 90 capsule 2 08/26/2023 metoprolol succinate (TOPROL-XL) 25 MG 24 hr tablet Take 1 tablet by mouth every morning. 09/03/2023 oxyCODONE 5 MG immediate release tabletIndications:Chroni c bilateral low back pain without sciatica Take 1 tablet (5 mg total) by mouth every 8 (eight) hours as needed. Partial fill ok 30 tablet 05/07/2024 sildenafiL (VIAGRA) 100 mg tabletIndications:Erecti le dysfunction, unspecified erectile dysfunction type TAKE 1 TABLET BY MOUTH NEEDED DIRECTED 6 tablet 4 2024 XARELTO 20 mg Tab Take 20 mg by mouth daily with dinner. 03/19/2024 zolpidem (AMBIEN) 5 MG tabletIndications:Insomn ia Take 1 tablet (5 mg total) by mouth nightly at bedtime as needed. 30 tablet 3 05/07/2024 documented as of this encounter Plan of Treatment Upcoming Encounters Date Type Department Care Team (Late st Contact Info) Description 10/13/2024 1:00 PM EDT Appointment [facility] [place] [facility] [address] [place] [id number] Kevin Patel MD [address] [place] [address] [email or web address] documented as of this encounter Procedures Procedure Name Priority Date/Time Associated Diagnosis Comments COMPREHENSIVE METABOLIC PANEL Routine 05/08/2024 8:50 AM EST Chronic bilateral low back pain without sciatica Bilateral hip pain Pure hypercholesterolemia NSAID long-term use TSH WITH REFLEX Routine 05/08/2024 8:50 AM EST Chronic bilateral low back pain without sciatica Pure hypercholesterolemia MERCURY, BLOOD Routine 05/08/2024 8:50 AM EST Exposure to mercury CBC AND DIFFERENTIAL Routine 05/08/2024 8:50 AM EST Chronic bilateral low back pain without sciatica Bilateral hip pain Pure hypercholesterolemia NSAID long-term use LIPID PANEL Routine 05/08/2024 8:50 AM EST Pure hypercholesterolemia documented in this encounter Results * Lipid panel (05/08/2024 8:50 AM EST) HDL 42 mg/dL [facility] Comment: ? Interpretation <40 mg/dL: Low HDL cholesterol (major risk factor for CHD) Greater than or equal to 60 mg/dL: High HDL cholesterol ( negative risk factor for CHD) HDL - cholesterol is affected by a number of factors, e.g. smoking, excerise, hormones, sex and age. CHOLESTEROL 178 0 - 240 mg/dL [facility] TRIGLYCERIDES 85 30 - 160 mg/dL [facility] LDL 119 50 - 129 mg/dL [facility] Comment: LDL levels in terms of risk for coronary heart disease: <100 mg/dL: Optimal 100-129 mg/dL: Near or above optimal 130-159 mg/dL: Borderline high 160-189 mg/dL: High >190 mg/dL: Very High CARDIAC RISK RATIO 4.2 3.4 - 5.0 [facility] Blood 05/08/2024 8:50 AM EST 05/08/2024 8:58 AM EST Kevin Patel MD LAB BLOOD ORDERABLES Performing Organization Address City/State/[facility] Co de Phone Number [address] [address] * (ABNORMAL) Comprehensive metabolic panel (05/08/2024 8:50 AM EST) SODIUM 143 133 - 146 mmol/L [facility] POTASSIUM 4.7 3.3 - 5.1 mmol/L [facility] CHLORIDE 107 96 - 108 mmol/L [facility] CO2 26 21 - 35 mmol/L [facility] BUN 21(H) 6 - 19 mg/dL [facility] CREATININE 1.20 0.5 - 1.5 mg/dL [facility] GLUCOSE 108(H) 70 - 99 mg/dL [facility] ALBUMIN 3.8(L) 3.9 - 4.8 g/dL [facility] TOTAL PROTEIN 6.5 6.5 - 8.0 g/dL [facility] CALCIUM 8.9 8.4 - 10.3 mg/dL [facility] ALKALINE PHOSPHATASE 65 39 - 117 U/L [facility] TOTAL BILIRUBIN 0.3 0.0 - 1.2 mg/dL [facility] AST 22 0 - 37 U/L [facility] ALT 15 0 - 40 U/L [facility] GLOBULIN 2.7 1 - 4.8 g/dL [facility] EGFR 62 >59 mL/min/1.7 3m2 [facility] Comment:Estimated glomerular filtration rate calculated using the CKD-EPI refit equation. ANION GAP 15 10 - 20 mmol/L [facility] Blood 05/08/2024 8:50 AM EST 05/08/2024 8:58 AM EST Kevin Patel MD LAB BLOOD ORDERABLES Performing Organization Address City/State/[facility] Co de Phone Number [address] [address] * CBC and differential (05/08/2024 8:50 AM EST) WBC 5.37 4.00 - 11.00 K/uL [facility] RBC 4.91 4.50 - 5.90 M/uL [facility] HGB 14.2 13.5 - 17.5 g/dL [facility] HCT 43.8 41.0 - 53.0 % [facility] PLT 207 150 - 450 K/uL [facility] MCV 89.2 80.0 - 100.0 fL [facility] MCH 28.9 27.0 - 31.0 pg [facility] MCHC 32.4 32.0 - 36.0 g/dL [facility] RDW 12.9 11.5 - 14.5 % [facility] MPV 9.7 8.4 - 12.0 [facility] NRBC 0.00 0.00 /100 WBCs [facility] ABSOLUTE NRBC 0.00 0.00 K/uL [facility] DIFF METHOD Auto [facility] NEUTS 64.0 48.0 - 76.0 % [facility] LYMPHS 22.5 18.0 - 41.0 % [facility] MONOS 9.3 4.0 - 11.0 % [facility] EOS 3.4 0.0 - 5.0 % [facility] BASOS 0.6 0.0 - 1.5 % [facility] Granulocytes, immature (%) 0.2 0.0 - 0.9 % [facility] ABSOLUTE NEUTS 3.44 1.92 - 7.60 K/uL [facility] ABSOLUTE LYMPHS 1.21 0.72 - 4.10 K/uL [facility] ABSOLUTE MONOS 0.50 0.16 - 1.10 K/uL [facility] ABSOLUTE EOS 0.18 0.00 - 0.50 K/uL [facility] ABSOLUTE BASOS 0.03 0.00 - 0.15 K/uL [facility] Granulocytes, immature 0.01 0.00 - 0.09 K/uL [facility] Blood 05/08/2024 8:50 AM EST 05/08/2024 8:58 AM EST Kevin Patel MD LAB BLOOD ORDERABLES [address] [address] * TSH with reflex (05/08/2024 8:50 AM EST) TSH 1.02 0.27 - 4.20 uIU/mL [facility] Blood 05/08/2024 8:50 AM EST 05/08/2024 8:58 AM EST Kevin Patel MD LAB BLOOD ORDERABLES [address] [address] * (ABNORMAL) Mercury, blood (05/08/2024 8:50 AM EST) BLD MERCURY 10(H) <10 ng/mL [facility] Comment: (NOTE) ADDITIONAL INFORMATION This test was developed and its performance characteristics determined by [facility] in a manner consistent with CLIA requirements. This test has not been cleared or approved by the U.S. Food and Drug Administration. Blood 05/08/2024 8:50 AM EST 05/08/2024 8:57 AM EST Kevin Patel MD LAB BLOOD ORDERABLES [facility] [address] [place] [address] documented in this encounter Visit Diagnoses Diagnosis Exposure to mercury Chronic bilateral low back pain without sciatica Pure hypercholesterolemia Bilateral hip pain Pain in joint, pelvic region and thigh NSAID long-term use Encounter for long-term (current) use of non-steroidal anti-inflammatories Routine [facility] at [facility] Primary osteoarthritis involving multiple joints Malaise and fatigue Lipid screening Screening for lipoid disorders documented in this encounter Additional Health Concerns Assessment Noted Time PHQ-9 Depression Total Score: 7 09/29/19 23 2:57 PM EDT PHQ-2 Depression Total Score: 0 10/01/19 24 1:56 PM EDT documented as of this encounter Care Teams Crane Oiler Relationship Specialty Start Date End Date Kevin Patel MD [address] [place] [address] [email or web address] PCP - General Internal Medicine 02/25/17 Kevin Patel MD [address] [place] [address] [email or web address] Insurance Assigned Provider 08/03/23 documented as of this encounter Additional Source Comments The information contained in this document represents components of the legal health record. It is not the complete legal health record.[facility]
--- OUTSIDE RECORDS SUMMARY | 2024-05-25 19:25 | XMS_ITS | Encounter Summary ---
Author Organization [facility] Address [phone] [place] [address] Care Team Providers Care Lanolin Plant Operator Name Role Phone Kevin Patel MD Unavailable [phone] Kevin Patel MD Primary Care Provider [phone] Reason for Visit * Reason Comments Follow-up Encounter Details Date Type Department Care Team (Late st Contact Info) Description 05/07/2024 11:00 AM EST Office Visit [facility] Internal Medicine [address] [place] [address] Kevin Patel MD [address] [place] [address] [email or web address] Paroxysmal A-fib (Primary Dx); Bilateral hip pain; Chronic bilateral low back pain without sciatica; Insomnia; Pure hypercholesterolemia ; NSAID long-term use; Exposure to mercury Social History Tobacco Use Types Packs/Day Years [...] on file documented as of this encounter Last Filed Vital Signs Vital Sign Reading Time Taken Comments Blood Pressure - - Pulse - - Temperature - - Respiratory Rate - - Oxygen Saturation - - Inhaled Oxygen Concentration - - Weight 89.4 kg (197 lb 3.2 oz) 05/07/2024 11:09 AM EST Height 178.8 cm (5' 10.39 ) 05/07/2024 11:09 AM EST Body Mass Index 27.98 05/07/2024 11:09 AM EST documented in this encounter Progress Notes * Kevin Patel MD - 05/07/2024 11:00 AM EST Subjective: Patient ID: Donald Mcpherson is a 79 y.o. male. HPI Patient enters for a follow up visit he has pure hypercholesteremia He has chronic low back pain and takes Oxycodone. He has seen a surgeon who doesn't think surgery will help. He noticed this past year that he started having bilateral hip pain. He was not able to walk very far because of the pain. Especially if he is walking up hill. He was taking Meloxicam. He shouldn't be taking this because he was diagnosed recently through [facility] with paroxysmal Afib. He wants to be tested for mercury because he eats a lot of fish. Current Outpatient Medications Ordered in Epic Medication Sig Abbreviated Dosage cholecalciferol (VITAMIN D3) 2,000 unit tablet Take 2,000 Units by mouth daily. See instructions for application fexofenadine (BENJAMIN ALLERGY) 180 MG tablet Take 180 mg by mouth as needed. See instructions for application flecainide (TAMBOCOR) 100 MG tablet Take 1 tablet by mouth 2 (two) times a day. See instructions for application gabapentin (NEURONTIN) 300 MG capsule take 1 capsule by mouth every day in the evening See instructions for application metoprolol succinate (TOPROL-XL) 25 MG 24 hr tablet Take 1 tablet by mouth every morning. See instructions for application sildenafiL (VIAGRA) 100 mg tablet TAKE 1 TABLET BY MOUTH NEEDED DIRECTED See instructions forapplication XARELTO 20 mg Tab Take 20 mg by mouth daily with dinner. See instructions for application oxyCODONE 5 MG immediate release tablet Take 1 tablet (5 mg total) by mouth every 8 (eight) hours as needed. Partial fill ok See instructions for application zolpidem (AMBIEN) 5 MG tablet Take 1 tablet (5 mg total) by mouth nightly at bedtime as needed. Seeinstructions for application Review of Systems Denies muscle aches Objective: Physical Exam Ht 178.8 cm (5' 10.39 ) Wt 89.4 kg (197 lb 3.2 oz) BMI 27.98 kg/m?? CONSTITUTIONAL: Appears well- developed and well nourished. Cooperative, patient is alert. HEENT:PERRTL, EOM intact, fundi benign, TM's clear, throat clear. NECK: supple, no thyroid megaly, no adenopathy. LUNGS: clear to A&P,no wheezing/rhonichi/rales. HEART: RRR S1S2 without murmurs, rubs or gallops. ABDOMEN: bowel sounds: normal, soft non tender without masses. EXTREMITIES: without edema, clubbing or cyanosis. Increased pain on the left hip with armando maneuver. Tenderness over hip muscles bilaterally. BACK: Tenderness across low back muscles to palpation. Assessment/Plan: 1. Paroxysmal A-fib (Primary) I told him to stop Meloxicam as he is taking Xarelto. 2. Bilateral hip pain were going to get an xray of his hips. He may need to see an orthopedics if not improving. - XR Hips (Bilateral) - Comprehensive metabolic panel - CBC and differential 3. Chronic bilateral low back pain without sciatica cont med - oxyCODONE 5 MG immediate release tablet Dispense: 30 tablet; Refill: 0 - XR Hips (Bilateral) - Comprehensive metabolic panel - CBC and differential - TSH with reflex 4. Insomnia cont med - zolpidem (AMBIEN) 5 MG tablet Dispense: 30 tablet; Refill: 3 5. Pure hypercholesterolemia cont diet - Lipid panel - Comprehensive metabolic panel - CBC and differential - TSH with reflex 6. NSAID long-term use - Comprehensive metabolic panel - CBC and differential 7. Exposure to mercury - Mercury, blood Problem List Items Addressed This Visit Endocrine Hyperlipidemia Relevant Orders Lipid panel Comprehensive metabolic panel CBC and differential TSH with reflex Neuro and EENT Insomnia Relevant Medications zolpidem (AMBIEN) 5 MG tablet Signs and Symptoms Chronic bilateral low back pain without sciatica Relevant Medications oxyCODONE 5 MG immediate release tablet Other Relevant Orders XR Hips (Bilateral) (Completed) Comprehensive metabolic panel CBC and differential TSH with reflex Other Visit Diagnoses Paroxysmal A-fib - Primary Relevant Medications flecainide (TAMBOCOR) 100 MG tablet Bilateral hip pain Relevant Orders XR Hips (Bilateral) (Completed) Comprehensive metabolic panel CBC and differential NSAID long-term use Relevant Orders Comprehensive metabolic panel CBC and differential Exposure to mercury Relevant Orders Mercury, blood documented in this encounter Plan of Treatment Upcoming Encounters Date Type Department Care Team (Late st Contact Info) Description 10/13/2024 1:00 PM EDT Appointment [facility] [address] [place] [address] Kevin Patel MD [address] [place] [address] [email or web address] documented as of this encounter Procedures Procedure Name Priority Date/Time Associated Diagnosis Comments XR HIPS (BILATERAL) Routine 05/07/2024 1 2:13 PM EST Chronic bilateral low back pain without sciatica Bilateral hip pain XR HIPS WITH PELVIS (BILATERAL) Routine 05/07/2024 12:00 PM EST Chronic bilateral low back pain without sciatica documented in this encounter Results * (ABNORMAL) Mercury, blood (05/08/2024 8:50 AM EST) BLD MERCURY 10(H) <10 ng/mL [facility] Comment: (NOTE) ADDITIONAL INFORMATION This test was developed and its performance characteristics determined by [facility] in a manner consistent with CLIA requirements. This test has not been cleared or approved by the U.S. Food and Drug Administration. Blood 05/08/2024 8:50 AM EST 05/08/2024 8:57 AM EST Kevin Patel MD LAB BLOOD ORDERABLES [facility] [address] [place] [address] * TSH with reflex (05/08/2024 8:50 AM EST) TSH 1.02 0.27 - 4.20 uIU/mL [facility] Blood 05/08/2024 8:50 AM EST 05/08/2024 8:58 AM EST Kevin Patel MD LAB BLOOD ORDERABLES [facility] [address] [place] [address] * CBC and differential (05/08/2024 8:50 AM EST) WBC 5.37 4.00 - 11.00 K/uL [facility] RBC 4.91 4.50 - 5.90 M/uL [facility] HGB 14.2 13.5 - 17.5 g/dL [facility] HCT 43.8 41.0 - 53.0 % [facility] PLT 207 150 - 450 K/uL [facility] MCV 89.2 80.0 - 100.0 fL [facility] MCH 28.9 27.0 - 31.0 pg [facility] MCHC 32.4 32.0 - 36.0 g/dL [facility] RDW 12.9 11.5 - 14.5 % [facility] MPV 9.7 8.4 - 12.0 fL [facility] NRBC 0.00 0.00 /100 WBCs [facility] ABSOLUTE NRBC 0.00 0.00 K/uL [facility] DIFF METHOD Auto [facility] NEUTS 64.0 48.0 - 76.0 % [facility] LYMPHS 22.5 18.0 - 41.0 % [facility] MONOS 9.3 4.0 - 11.0 % [facility] EOS 3.4 0.0 - 5.0 % [facility] BASOS 0.6 0.0 - 1.5 % [facility] Granulocytes, immature (%) 0.2 0.0 - 0.9 % [facility] ABSOLUTE NEUTS 3.44 1.92 - 7.60 K/uL [facility] ABSOLUTE LYMPHS 1.21 0.72 - 4.10 K/uL [facility] ABSOLUTE MONOS 0.50 0.16 - 1.10 K/uL [facility] ABSOLUTE EOS 0.18 0.00 - 0.50 K/uL [facility] ABSOLUTE BASOS 0.03 0.00 - 0.15 K/uL [facility] Granulocytes, immature 0.01 0.00 - 0.09 K/uL [facility] Blood 05/08/2024 8:50 AM EST 05/08/2024 8:58 AM EST Kevin Patel MD LAB BLOOD ORDERABLES Performing Organization Address City/State/[facility] Co de Phone Number [facility] [address] [place] [address] * (ABNORMAL) Comprehensive metabolic panel (05/08/2024 8:50 AM EST) SODIUM 143 133 - 146 mmol/L [facility] POTASSIUM 4.7 3.3 - 5.1 mmol/L [facility] CHLORIDE 107 96 - 108 mmol/L [facility] CO2 26 21 - 35 mmol/L [facility] BUN 21(H) 6 - 19 mg/dL [facility] CREATININE 1.20 0.5 - 1.5 mg/dL [facility] GLUCOSE 108(H) 70 - 99 mg/dL [facility] ALBUMIN 3.8(L) 3.9 - 4.8 g/dL [facility] TOTAL PROTEIN 6.5 6.5 - 8.0 g/dL [facility] CALCIUM 8.9 8.4 - 10.3 mg/dL [facility] ALKALINE PHOSPHATASE 65 39 - 117 U/L [facility] TOTAL BILIRUBIN 0.3 0.0 - 1.2 mg/dL [facility] AST 22 0 - 37 U/L [facility] ALT 15 0 - 40 U/L [facility] GLOBULIN 2.7 1 - 4.8 g/dL [facility] EGFR 62 >59 mL/min/1.7 3m2 [facility] Comment:Estimated glomerular filtration rate calculated using the CKD-EPI refit equation. ANION GAP 15 10 - 20 mmol/L [facility] Blood 05/08/2024 8:50 AM EST 05/08/2024 8:58 AM EST Kevin Patel MD LAB BLOOD ORDERABLES Performing Organization Address City/[facility]/ZIP Co de Phone Number [address] [address] * Lipid panel (05/08/2024 8:50 AM EST) HDL 42 mg/dL [facility] Comment: ? Interpretation <40 mg/dL: Low HDL cholesterol (major risk factor for CHD) Greater than or equal to 60 mg/dL: High HDL cholesterol ( negative risk factor for CHD) HDL - cholesterol is affected by a number of factors, e.g. smoking, excerise, hormones, sex and age. CHOLESTEROL 178 0 - 240 mg/dL [facility] TRIGLYCERIDES 85 30 - 160 mg/dL [facility] LDL 119 50 - 129 mg/dL [facility] Comment: LDL levels in terms of risk for coronary heart disease: <100 mg/dL: Optimal 100-129 mg/dL: Near or above optimal 130-159 mg/dL: Borderline high 160-189 mg/dL: High >190 mg/dL: Very High CARDIAC RISK RATIO 4.2 3.4 - 5.0 [facility] Blood 05/08/2024 8:50 AM EST 05/08/2024 8:58 AM EST Kevin Patel MD LAB BLOOD ORDERABLES Performing Organization Address City/[facility]/ZIP Co de Phone Number [address] [address] documented in this encounter Visit Diagnoses Diagnosis Paroxysmal A-fib- Primary Bilateral hip pain Pain in joint, pelvic region and thigh Chronic bilateral low back pain without sciatica Insomnia Insomnia, unspecified Pure hypercholesterolemia NSAID long-term use Encounter for long-term (current) use of non-steroidal anti-inflammatories Exposure to mercury documented in this encounter Additional Health Concerns Assessment Noted Time PHQ-9 Depression Total Score: 7 09/29/19 23 2:57 PM EDT PHQ-2 Depression Total Score: 0 10/01/19 24 1:56 PM EDT documented as of this encounter Care Teams Lanolin Plant Operator Relationship Specialty Start Date End Date Kevin Patel MD [address] [place] [id number] [email or web address] PCP - General Internal Medicine 02/25/17 Kevin Patel MD [address] [place] [address] [email or web address] Insurance Assigned Provider 08/03/23 documented as of this encounter Additional Source Comments The information contained in this document represents components of the legal health record. It is not the complete legal health record.[facility]
--- OUTSIDE RECORDS SUMMARY | 2024-05-25 19:26 | XMS_ITS | Encounter Summary ---
Author Organization [facility] Address [phone] [place] [address] Care Team Providers Care Pantry Chef Name Role Phone Kevin Patel MD Unavailable [phone] Kevin Patel MD Primary Care Provider [phone] Reason for Visit * Reason Onset Date Comments Results 05/18/2024 Encounter Details Date Type Department Care Team (Late st Contact Info) Description 05/18/2024 Telephone [employer] [facility] Internal Medicine [address] [place], [place] [id number] Kevin Patel MD [address] [place] [address] [email or web address] Results Social History Tobacco Use Types Packs/Day [...] as of this encounter Progress Notes * Radha Garcia RN - 05/19/2024 9:06 AM EST Spoke to Donald and advised. He states understanding, agreeable to plan. * Martita Villalpando RN - 05/19/2024 7:07 AM EST Images from the original note were not included. Kevin Patel MD P Kay Elaine Rn Call patient and let him know Mercury level has increased to 10. This is abnormal. Patient should avoid eating locally caught fish. Repeat blood mercury level in 3 months Kevin Patel MD P [facility] Jered Elaine Rn No fracture. Degenerative changes noted * Kevin Patel MD - 05/18/2024 9:58 AM EST Needs mercury level in 3 months after avoiding locally caught fish.I have been unable to reach thispatient by phone. Let patient know. documented in this encounter Plan of Treatment Upcoming Encounters Date Type Department Care Team (Late st Contact Info) Description 10/13/2024 1:00 PM EDT Appointment [facility] Internal Medicine [address] [place] [address] Kevin Patel MD [address] [place] [address] [email or web address] Scheduled Orders Name Type Priority Associated Diagnoses Orde r Schedule Mercury, blood Lab Routine Exposure to mercury Expected: 08/14/2024, Expires: 08/16/2024 documented as of this encounter Visit Diagnoses Diagnosis Exposure to mercury- Primary documented in this encounter Additional Health Concerns Assessment Noted Time PHQ-9 Depression Total Score: 7 09/29/19 23 2:57 PM EDT PHQ-2 Depression Total Score: 0 10/01/19 24 1:56 PM EDT documented as of this encounter Care Teams Pantry Chef Relationship Specialty Start Date End Date Kevin Patel MD [address] [place] [address] [email or web address] PCP - General Internal Medicine 02/25/17 Kevin Patel MD [address] [place] [address] [email or web address] Insurance Assigned Provider 08/03/23 documented as of this encounter Additional Source Comments The information contained in this document represents components of the legal health record. It is not the complete legal health record.[facility]
--- OUTSIDE RECORDS SUMMARY | 2024-05-25 19:26 | XMS_ITS | Encounter Summary ---
Author Organization [facility] Address [phone] [place] [address] Care Team Providers Care Computer Scientist Name Role Phone Kevin Patel MD Unavailable [phone] Kevin Patel MD Primary Care Provider [phone] Encounter Details Date Type Department Care Team (Late st Contact Info) Description 05/20/2024 Orders Only [facility] Internal Medicine [address] [place] [address] Provider, MD Enrique [address] [place] [address] Social History Tobacco Use Types Packs/Day Years [...] PM EDT Appointment [facility] Internal Medicine [address] [place] [address] Kevin Patel MD [address] [place] [address] documented as of this encounter Procedures Procedure Name Priority Date/Time Associated Diagnosis Comments OUTSIDE IMAGING Routine 05/20/2024 9:11 AM EST OUTSIDE IMAGING Routine 05/20/2024 9:07 AM EST OUTSIDE IMAGING Routine 05/20/2024 9:04 AM EST documented in this encounter Results * Outside Imaging Report Only (05/20/2024 9:11 AM EST) Historical Provider IMG XR CHEST * Outside Imaging Report Only (05/20/2024 9:07 AM EST) Historical Provider IMG XR CHEST * Outside Imaging Report Only (05/20/2024 9:04 AM EST) Historical Provider IMG XR CHEST documented in this encounter Visit Diagnoses Not on filedocumented in this encounter Additional Health Concerns Assessment Noted Time PHQ-9 Depression Total Score: 7 09/29/19 23 2:57 PM EDT PHQ-2 Depression Total Score: 0 10/01/19 24 1:56 PM EDT documented as of this encounter Care Teams Computer Scientist Relationship Specialty Start Date End Date Kevin Patel MD [address] [place] [address] PCP - General Internal Medicine 02/25/17 Kevin Patel MD [address] [place] [address] Insurance Assigned Provider 08/03/23 documented as of this encounter Additional Source Comments The information contained in this document represents components of the legal health record. It is not the complete legal health record.[facility]
--- OUTSIDE RECORDS SUMMARY | 2024-05-25 19:26 | XMS_ITS | Encounter Summary ---
Author Organization [facility] Address [phone] [place] [address] Care Team Providers Care Director Pharmacy Services Name Role Phone Kevin Patel MD Unavailable [phone] Kevin Patel MD Primary Care Provider [phone] Reason for Visit * Reason Comments Medication Refill Encounter Details Date Type Department Care Team (Late st Contact Info) Description 05/24/2024 Refill [facility] Internal Medicine [address] [place] [address] Kevin Patel MD [address] [place] [address] [email or web address] Medication Refill Social History Tobacco Use Types Packs/Day Years [...] as of this encounter Progress Notes * Giuliana Chapman CMA - 05/25/2024 9:24 AM EST Images from the original note were not included. Rx Care Gap Status - Instructions for Clinical Staff (prescriber discretion applies): > Please check PDMP/MassPAT for all controlled substances requested. n/a Visit Info Last visit: 05/07/2024 Kevin Patel MD - Internal Medicine [facility] > Requested f/u: Not specified Upcoming visit: 10/13/2024 Kevin Patel MD - [facility] ACTIONS TAKEN BY Giuliana Chapman CMA - Checked PDMP/MassPAT Antiepileptic Without Labs Rx Protocol Criteria met; renew for up to 12 months. - gabapentin Visit in the past 14 months: Yes Non-Opioid Controlled Substance With PDMP Rx Protocol - gabapentin Renewal is at prescriber discretion. Visit in the past 12 months: Yes documented in this encounter Plan of Treatment Upcoming Encounters Date Type Department Care Team (Late st Contact Info) Description 10/13/2024 1:00 PM EDT Appointment [facility] Internal Medicine [address] [place] [address] Kevin Patel MD [address] [place] [address] documented as of this encounter Visit Diagnoses Diagnosis Chronic bilateral low back pain without sciatica documented in this encounter Additional Health Concerns Assessment Noted Time PHQ-9 Depression Total Score: 7 09/29/19 23 2:57 PM EDT PHQ-2 Depression Total Score: 0 10/01/19 24 1:56 PM EDT documented as of this encounter Care Teams Director Pharmacy Services Relationship Specialty Start Date End Date Kevin Patel MD [address] [place] [address] PCP - General Internal Medicine 02/25/17 Kevin Patel MD [address] [place] [address] Insurance Assigned Provider 08/03/23 documented as of this encounter Additional Source Comments The information contained in this document represents components of the legal health record. It is not the complete legal health record.[facility]
--- OUTSIDE RECORDS SUMMARY | 2024-05-25 19:27 | XMS_ITS | Clinical Summary ---
Author Organization [facility] Address [phone] [place] [address] Care Team Providers Care Crossing Guard Name Role Phone Kevin Patel MD Unavailable [phone] Kevin Patel MD Primary Care Provider [phone] Allergies Active Allergy Reactions Criticality Noted Date Comments Celecoxib Other (See Comments) 05/17/2017 Flu-like sx's Citalopram Diarrhea 05/17/2017 Medications Medication Sig Dispensed Refills Start Date End Date Status cholecalciferol (VITAMIN D3) 2,000 unit tablet Take 2,000 Units by mouth daily. Active gabapentin (NEURONTIN) 300 MG capsuleIndication s:Chronic bilateral low back pain without sciatica take 1 capsule by mouth every day in the evening 90 capsule 2 08/26/2023 Active metoprolol succinate (TOPROL-XL) 25 MG 24 hr tablet Take 1 tablet by mouth every morning. 09/03/2023 Active sildenafiL (VIAGRA) 100 mg tabletIndications :Erectile dysfunction, unspecified erectile dysfunction type TAKE 1 TABLET BY MOUTH NEEDED DIRECTED 6 tablet 4 2024 Active XARELTO 20 mg Tab Take 20 mg by mouth daily with dinner. 03/19/2024 Active flecainide (TAMBOCOR) 100 MG tablet Take 1 tablet by mouth 2 (two) times a day. 03/19/2024 Active fexofenadine (BENJMAIN ALLERGY) 180 MG tablet Take 180 mg by mouth as needed. 02/11/2024 Active oxyCODONE 5 MG immediate release tabletIndications :Chronic bilateral low back pain without sciatica Take 1 tablet (5 mg total) by mouth every 8 (eight) hours as needed. Partial fill ok 30 tablet 05/07/2024 Active zolpidem (AMBIEN) 5 MG tabletIndications :Insomnia Take 1 tablet (5 mg total) by mouth nightly at bedtime as needed. 30 tablet 3 05/07/2024 Active meloxicam (MOBIC) 15 MG tablet TAKE 1 TABLET(15 MG) BY MOUTH DAILY 90 tablet 2 08/26/2023 05/07/2024 Discontinued (Drug interaction) oxyCODONE 5 MG immediate release tabletIndications :Chronic bilateral low back pain without sciatica Take 1 tablet (5 mg total) by mouth every 8 (eight) hours as needed. 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 Will tx with Doxy bid for 10 days. Advised hm that if any s/s are worsening/ changing to call [facility]. Lyme is not the only tick illness and he may need other tests or medications if a different tick illness is present. He is advised to take with 8 ox of water to avoid esophagitis and to avoid the sun/ use protection for the next 3 weeks due to high risk of burn Disorder of sacrum 10/06/2020 Bursitis of shoulder 04/15/2017 Cardiomegaly 04/15/2017 Overview (01/01/2024): Had stress test showing fixed defect distal inferolateral with minimum reversibility12/12/23 Nuc med [facility] ordered by Dr. french Chronic bilateral low back pain without sciatica 04/15/2017 Assessment & Plan (09/23/2020 9:52 AM EDT): L5-S1 left-sided sciatica though I do not feel that this is something permanent that needs a repeat MRI at this point. Instead we will try to calm down the area lower the swelling with some prednisone at a taper dose. He can take both dose naproxen 220 mg twice daily as needed and for breakthrough pain we will increase the oxycodone to 7.5 mg though I staunchly advised him not to drive under the influence of it. 21 tablets will be given. I have a consult out to Dr. Stoner to see if he might be able to help bring local swelling inflammation down with a targeted application of methylprednisolone to the epidural area that could be causing the patient's symptoms to exacerbate. Patient is in agreement with plan. 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 Pain of finger of right hand 04/15/2017 Encounters Date Type Department Care Team Description 05/24/2024 Refill [facility] Internal Medicine 40 [facility] [place] [address] Kevin Patel MD Medication Refill 05/20/2024 Orders Only [facility] Internal Medicine 40 [facility] [place] [address] Enrique Nicholson MD 05/18/2024 Telephone [facility] Internal Medicine [address] [facility] [place] [address] Kevin Patel MD Results 05/13/2024 Orders Only [facility] Internal Medicine [address] [facility] [place] [address] Enrique Nicholson MD 05/11/2024 Telephone [facility] Internal Medicine [address] [facility] [place] [address] Kevin Patel MD Results 05/08/2024 8:49 AM EST - 05/08/2024 11:59 PM EST Hospital Encounter [facility] [address] [place] [address] Kevin Patel MD Discharge Disposition: Home or Self Care 05/07/2024 11:00 AM EST Office Visit [facility] [place] Internal [facility] [address] [facility] [place] [address] Kevin Patel MD Paroxysmal A-fib (Primary Dx); Bilateral hip pain; Chronic bilateral low back pain without sciatica; Insomnia; Pure hypercholesterolemi a; NSAID long-term use; Exposure to mercury from Last 3 Months Immunizations Name Administration Dates Next Due COVID-19 (Pre-02/18) Pfizer Vaccine, mRNA, PF 07/24/2020,07/03/2020 Influenza High-Dose Quadriva lent Preservative Free IM 01/04/2022,12/15/2019 Influenza High-Dose Trivalen t Preservative Free IM 01/14/2024,12/23/2017,01/08/2017,12/26,01/07/2015,12/31/2013 Influenza Quadrivalent Adjuv anted Preservative Free IM 01/23/2023,01/05/2021 Influenza Trivalent Adjuvant ed Preservative free IM 01/13/2019 Influenza Trivalent w/ Preservative IM 7 Influenza, Unspecified Formulation 01/25/2010, Pneumococcal conjugate PCV13 03/14/2015 Pneumococcal conjugate PCV20 10/08/2023 Pneumococcal polysaccharide PPSV23 09/19/2012 RSV Vaccine (monovalent, adjuvanted) 02/06/2023 Tdap 11/22/2023,09/19/2012 Zoster live 02/13/2014 Zoster recombinant 10/08/2019,06/04/2019 Family History Medical History Relation Comments Atrial fibrillation Brother 1 Leukemia Father Breast cancer Mother Relation Status Comments Brother 1 Alive Watchman Brother 2 Alive Brother 3 Alive Father Mother Social History Tobacco Use Types Packs/Day Years Used Date Smoking Tobacco: Never Smokeless Tobacco: Never Tobacco Cessation:Counseling Given: Not Answered Alcohol Use Standard Drinks/Week Comments Yes 0 [...] on file Sexual Orientation Not on file Last Filed Vital Signs Vital Sign Reading Time Taken Comments Blood Pressure 112/64 12/25/2023 11:59 AM EDT Pulse 55 12/25/2023 11:59 AM EDT Temperature 36.6 ??C (97.9 ??F) 12/25/2023 11:59 AM E DT Respiratory Rate 20 12/25/2023 11:59 AM EDT Oxygen Saturation 98% 12/25/2023 11:59 AM EDT Inhaled Oxygen Concentration - - Weight 89.4 kg (197 lb 3.2 oz) 05/07/2024 11:09 AM EST Height 178.8 cm (5' 10.39 ) 05/07/2024 11:09 AM EST Body Mass Index 27.98 05/07/2024 11:09 AM EST Plan of Treatment Upcoming Encounters Date Type Department Care Team (Late st Contact Info) Description 10/13/2024 1:00 PM EDT Appointment [facility] Internal Medicine [address] [place] [address] Kevin Patel MD [address] [place] [address] [email or web address] Health Maintenance Due Date Last Done Comments HEPATITIS B SCREENING 01/22/1963 COLOGUARD 1991 FIT TEST 1991 FOBT 1991 SIGMOIDOSCOPY 1991 VIRTUAL COLONOSCOPY 1991 DEPRESSION SCREENING 09/30/2024 10/01/2023, 09/29/19 23 CREATININE LEVEL 05/08/2025 05/08/2024, , 01/10/2023, Additional history exists COLONOSCOPY 09/15/2025 09/15/2020, 08/28, 06/16/2009 COLORECTAL CANCER SCREENING 09/15/2025 LIPID PANEL 05/08/2029 05/08/2024, 09/2022, 10/02/2022, Additional history exists Adult Td,Tdap Booster 11/21/2033 11/22/2023, 013 HEPATITIS C SCREENING Completed 04/10/2019, 019 ZOSTER VACCINES Completed 10/08/2019, 09/2019, 02/13/2014 RSV VACCINE Completed 02/06/2023 PNEUMOCOCCAL VACCINES (50+ years) Completed 10/08/2023, 03/14/2015, 09/19/2012 COVID-19 VACCINE Completed 01/14/2024, , 01/23/2023, Additional history exists INFLUENZA VACCINE Completed 01/14/2024, , 01/23/2023, Additional history exists SMOKING STATUS SCREENING (Once After 26 Yrs) Completed 05/07/2024 HEPATITIS A VACCINES Aged Out No long er eligible based on patient's age to complete this topic HEPATITIS B VACCINES Aged Out No long er eligible based on patient's age to complete this topic HIB VACCINES Aged Out No longer eligi ble based on patient's age to complete this topic MENINGOCOCCAL VACCINES (ACWY) Aged Out No longer eligible based on patient's age to complete this topic Medical Devices Not on file Procedures Procedure Name Priority Date/Time Associated Diagnosis Comments OUTSIDE IMAGING Routine 05/20/2024 9:11 AM EST OUTSIDE IMAGING Routine 05/20/2024 9:07 AM EST OUTSIDE IMAGING Routine 05/20/2024 9:04 AM EST OUTSIDE XR EXTREMITY LOWER REPORT ONLY Routine 05/08/2024 10:38 AM EST LIPID PANEL Routine 05/08/2024 8:50 AM EST Pure hypercholesterolemia COMPREHENSIVE METABOLIC PANEL Routine 05/08/2024 8:50 AM EST Chronic bilateral low back pain without sciatica Bilateral hip pain Pure hypercholesterolemia NSAID long-term use CBC AND DIFFERENTIAL Routine 05/08/2024 8:50 AM EST Chronic bilateral low back pain without sciatica Bilateral hip pain Pure hypercholesterolemia NSAID long-term use TSH WITH REFLEX Routine 05/08/2024 8:50 AM EST Chronic bilateral low back pain without sciatica Pure hypercholesterolemia MERCURY, BLOOD Routine 05/08/2024 8:50 AM EST Exposure to mercury XR HIPS (BILATERAL) Routine 05/07/2024 12:13 PM EST Chronic bilateral low back pain without sciatica Bilateral hip pain XR HIPS WITH PELVIS (BILATERAL) Routine 05/07/2024 12:00 PM EST Chronic bilateral low back pain without sciatica HM COLONOSCOPY FOR RESULT ENTRY ONLY Routine 09/15/2020 HEPATITIS C ANTIBODY, QUALITATIVE Routine 04/10/2019 9:43 AM EST Need for hepatitis C screening test from Last 3 Months or Most Recently Relevant to Health Maintenance Results * Outside Imaging Report Only (05/20/2024 9:11 AM EST) Historical Provider IMG XR CHEST * Outside Imaging Report Only (05/20/2024 9:07 AM EST) Historical Provider IMG XR CHEST * Outside Imaging Report Only (05/20/2024 9:04 AM EST) Historical Provider IMG XR CHEST * Outside XR Extremity Lower Report Only (05/08/2024 10:38 AM EST) Historical Provider IMG XR LOWER EXTR EMITY * (ABNORMAL) Comprehensive metabolic panel (05/08/2024 8:50 AM EST) SODIUM 143 133 - 146 mmol/L [facility] POTASSIUM 4.7 3.3 - 5.1 mmol/L [facility] CHLORIDE 107 96 - 108 mmol/L [facility] CO2 26 21 - 35 mmol/L [facility] BUN 21(H) 6 - 19 mg/dL [facility] CREATININE 1.20 0.5 - 1.5 mg/dL [facility] GLUCOSE 108(H) 70 - 99 mg/dL [facility] ALBUMIN 3.8(L) 3.9 - 4.8 g/dL [facility] TOTAL PROTEIN 6.5 6.5 - 8.0 g/dL [facility] CALCIUM 8.9 8.4 - 10.3 mg/dL [facility] ALKALINE PHOSPHATASE 65 39 - 117 U/L [facility] TOTAL BILIRUBIN 0.3 0.0 - 1.2 mg/dL [facility] AST 22 0 - 37 U/L [facility] ALT 15 0 - 40 U/L [facility] GLOBULIN 2.7 1 - 4.8 g/dL [facility] EGFR 62 >59 mL/min/1.7 3m2 [facility] Comment:Estimated glomerular filtration rate calculated using the CKD-EPI refit equation. ANION GAP 15 10 - 20 mmol/L [facility] Blood 05/08/2024 8:50 AM EST 05/08/2024 8:58 AM EST Kevin Patel MD LAB BLOOD ORDERABLES Performing Organization Address [facility] de Phone Number [address] [address] * TSH with reflex (05/08/2024 8:50 AM EST) TSH 1.02 0.27 - 4.20 uIU/mL [facility] Blood 05/08/2024 8:50 AM EST 05/08/2024 8:58 AM EST Kevin Patel MD LAB BLOOD ORDERABLES Performing Organization Address [facility] de Phone Number [address] [address] * (ABNORMAL) Mercury, blood (05/08/2024 8:50 AM EST) BLD MERCURY 10(H) <10 ng/mL [facility] T [facility] Comment: (NOTE) ADDITIONAL INFORMATION This test was developed and its performance characteristics determined by [facility] in a manner consistent with CLIA requirements. This test has not been cleared or approved by the U.S. Food and Drug Administration. Blood 05/08/2024 8:50 AM EST 05/08/2024 8:57 AM EST Kevin Patel MD LAB BLOOD ORDERABLES Performing Organization Address [facility] de Phone Number [facility] [address] [place] [address] * CBC and differential (05/08/2024 8:50 AM EST) WBC 5.37 4.00 - 11.00 K/uL [facility] RBC 4.91 4.50 - 5.90 M/uL [facility] HGB 14.2 13.5 - 17.5 g/dL [facility] HCT 43.8 41.0 - 53.0 % [facility] PLT 207 150 - 450 K/uL [facility] MCV 89.2 80.0 - 100.0 fL [facility] MCH 28.9 27.0 - 31.0 pg [facility] MCHC 32.4 32.0 - 36.0 g/dL [facility] RDW 12.9 11.5 - 14.5 % [facility] MPV 9.7 8.4 - 12.0 fL [facility] NRBC 0.00 0.00 /100 WBCs [facility] ABSOLUTE NRBC 0.00 0.00 K/uL [facility] DIFF METHOD Auto [facility] NEUTS 64.0 48.0 - 76.0 % [facility] LYMPHS 22.5 18.0 - 41.0 % [facility] MONOS 9.3 4.0 - 11.0 % [facility] EOS 3.4 0.0 - 5.0 % [facility] BASOS 0.6 0.0 - 1.5 % [facility] Granulocytes, immature (%) 0.2 0.0 - 0.9 % [facility] ABSOLUTE NEUTS 3.44 1.92 - 7.60 K/uL [facility] ABSOLUTE LYMPHS 1.21 0.72 - 4.10 K/uL [facility] ABSOLUTE MONOS 0.50 0.16 - 1.10 K/uL [facility] ABSOLUTE EOS 0.18 0.00 - 0.50 K/uL [facility] ABSOLUTE BASOS 0.03 0.00 - 0.15 K/uL [facility] Granulocytes, immature 0.01 0.00 - 0.09 K/uL [facility] Blood 05/08/2024 8:50 AM EST 05/08/2024 8:58 AM EST Kevin Patel MD LAB BLOOD ORDERABLES [address] [address] * Lipid panel (05/08/2024 8:50 AM EST) HDL 42 mg/dL [facility] Comment: ? Interpretation <40 mg/dL: Low HDL cholesterol (major risk factor for CHD) Greater than or equal to 60 mg/dL: High HDL cholesterol ( negative risk factor for CHD) HDL - cholesterol is affected by a number of factors, e.g. smoking, excerise, hormones, sex and age. CHOLESTEROL 178 0 - 240 mg/dL [facility] TRIGLYCERIDES 85 30 - 160 mg/dL [facility] LDL 119 50 - 129 mg/dL [facility] Comment: LDL levels in terms of risk for coronary heart disease: <100 mg/dL: Optimal 100-129 mg/dL: Near or above optimal 130-159 mg/dL: Borderline high 160-189 mg/dL: High >190 mg/dL: Very High CARDIAC RISK RATIO 4.2 3.4 - 5.0 [facility] Blood 05/08/2024 8:50 AM EST 05/08/2024 8:58 AM EST Kevin Patel MD LAB BLOOD ORDERABLES [address] [address] * COLONOSCOPY FOR RESULT ENTRY ONLY (09/15/2020) Historical Provider MD PRINCE GALEVZ E * Hepatitis C antibody, qualitative (04/10/2019 9:43 AM EST) HCV NON-REACTIV E NON-REACTI VE [facility] Blood 04/10/2019 9:43 AM EST 04/10/2019 9:47 AM EST Kevin Patel MD LAB BLOOD ORDERABLES [facility] [address] [place] [address] from Last 3 Months or Most Recently Relevant to Health Maintenance Care Teams Crossing Guard Relationship Specialty Start Date End Date Kevin Patel MD [address] [place] [phone] PCP - General Internal Medicine 02/25/17 Kevin Patel MD [address] [place] [address] [email or web address] Insurance Assigned Provider 08/03/23 Additional Source Comments The information contained in this document represents components of the legal health record. It is not the complete legal health record.[facility]
== END 2024-05-25 16:09 | disposition home or self-care (01) ==
PROVIDERS: PCP Internal Medicine; Visit Provider Nurse Practitioner Family
DX: R07.89 Other chest pain (principal); I48.0 Paroxysmal atrial fibrillation; R00.2 Palpitations; R94.39 Abnormal result of other cardiovascular function study; Z98.890 Other specified postprocedural states
CPT/HCPCS: 93010; 99214; G2211

== ENCOUNTER → 2024-05-25 15:21 | Outpatient (BNVA) | payer MEDICARE, SELFPAY | PROVIDERS: PCP Internal Medicine; Visit Provider Nurse Practitioner Family | DX: R07.89 Other chest pain (principal); R00.2 Palpitations; R94.39 Abnormal result of other cardiovascular function study; I48.0 Paroxysmal atrial fibrillation; R00.1 Bradycardia, unspecified; I44.0 Atrioventricular block, first degree; Z98.890 Other specified postprocedural states | CPT/HCPCS: 93005; 99212 ==

== ENCOUNTER 2024-08-27 13:47 | Outpatient (AMB) | payer MEDICARE, SELFPAY ==
[2024-08-27 13:57] VITALS: BP 114/72; PULSE 54; BMI 27.3
--- NOTE | 2024-08-27 13:57 | A.OFFVIS_ITS ---
Vital Signs 08/27/24 13:57 Height 5 ft 10 in Weight 190 lb 0.615 oz BMI 27.3 BP 114/72 Blood Pressure Location Lt brachial Position Sitting Pulse 54 Pulse Source Monitor Intake Visit Reasons: 3-4m follow up Architectural Manager Required: No Allergies celecoxib [From Celebrex] Allergy (Mild, Verified 08/27/24 13:59) Cough Medication List - Last Reconciled 08/27/24 by Brandi Leone, PELON-C flecainide 100 mg PO Q12H metoprolol succinate ER (Toprol XL) 25 mg PO DAILY rivaroxaban (Xarelto) 20 mg PO DAILY zolpidem 2.5 mg PO BEDTIME PRN HPI HPI 3-4m follow up: Details: Donald is a 79-year-old male with no significant cardiac risk factors who has had episodes of significant bilateral jaw pain in the last year. He has undergone cardiac testing including cardiac catheterization which showed normal coronary arteries. Since last visit he underwent a cardiac event monitor which did show paroxysmal atrial fibrillation. He is now on metoprolol, flecainide and Xarelto and presents for follow-up. Today he reports he is still doing well since the start of his medication management for AFib. When wearing the cardiac event monitor he was able to correlate an episode of jaw pain with PAF. He has not had jaw pain since that time. He does not get chest discomfort, shortness of breath, lightheadedness. He has good activity tolerance. He has had no bleeding issues. He is now interested in atrial fibrillation. [facility] Medical History History of trigger finger Surgical History Hx of cholecystectomy Hx of shoulder surgery History of back surgery Hx of hernia repair Family History Father No problems noted. Mother No problems noted. Social History Patient Tobacco Use Status: Never used Tobacco Review of Systems Const All systems reviewed & are unremarkable except as noted in HPI and below ENT Denies dizziness Card Denies chest pain, Denies chest pain at rest, Denies chest pain with activity, Reports rapid heart rate, Denies pedal edema, Denies edema, Denies leg edema, Denies lightheadedness, Denies palpitations, Denies dyspnea, Denies dyspnea on exertion and Denies orthopnea Resp Denies cough, Denies dyspnea and Denies dyspnea on exertion GI Denies hematochezia and Denies change in stool character Musc Denies abnormal gait, Denies limited range of motion, Denies muscle cramps, Denies muscle weakness, Denies numbness, Denies radiating pain into limb, Denies stiffness and Denies tingling Neuro Denies abnormal gait, Denies dizziness, Denies numbness and Denies tingling Endo Denies palpitations Physical Exam Vital Signs: Last Vital Signs Pulse 54 08/27/24 13:57 BP 114/72 08/27/24 13:57 BMI result Body Mass Index 27.3 Const General: cooperative, healthy appearing, comfortable and no acute distress Orientation/consciousness: patient oriented x3 Neck Neck: Yes normal visual inspection and Yes no JVD Resp Effort & Inspection: normal respiratory effort Auscultation: clear to auscultation bilaterally, no crackles, no rales, no rhonchi and no wheezes Cardio Rate: regular rate Rhythm: regular rhythm Heart sounds: S1 normal heart sound present, S2 normal heart sound present, no gallops, no murmurs and no rubs Neuro General: patient oriented x3 Extrem General: Yes normal to inspection, No no pedal edema and No calf tenderness Psych Appearance: grossly normal Mental Status: mental status grossly normal Speech and movement: Normal speech and movement present Office Procedures EKG Details: Today, read by me, sinus bradycardia, first-degree AV block, rate 54, QTC 434 millisecond [id number], Complete Assessment & Plan Assessment & Plan (1) Paroxysmal atrial fibrillation: Code(s): I48.0 - Paroxysmal atrial fibrillation Category: Medical Plan: Newer finding of paroxysmal atrial fibrillation on recent cardiac event monitor. He has an atypical presentation with severe jaw pain and mild palpitations. He has done well with medical management including metoprolol and flecainide. His EKG today showing sinus bradycardia, first-degree AV block, rate 54. He is on Xarelto for anticoagulation which he is tolerating well. He is interested in atrial fibrillation ablation. Will refer him to electrophysiology for this reason. He is hopeful to get off as many medications as possible. He has previously asked about Watchman device. Continue current med management. Cardiology follow-up 4 months which I anticipate to be post atrial fibrillation ablation. (2) Atypical chest pain: Code(s): R07.89 - Other chest pain Category: Medical Plan: Atypical sounding discomfort, bilateral jaw pain that is briefly preceded by heart palpitation. His 1st episode of jaw pain started February 2023. At the time of last visit he had reported having had 5-6 episodes, with pain as severe as 10/10, nonexertional. Cardiac evaluation included echocardiogram done 09/19/2023 showing EF 55-60%, mild increase in the RV size, left atrium moderately dilated, mild MR, ascending aorta 3.9 cm. He had an exercise nuclear stress test done 12/12/2023 with exercise 9 minutes with [id number] shortness of breath, no chest discomfort, no EKG changes of ischemia, nuclear imaging showed infarct in the distal inferior lateral wall with minimal ischemia. He then underwent a diagnostic cardiac catheterization showing normal coronary arteries. For further evaluation he had a cardiac event monitor which did show episodes of paroxysmal atrial fibrillation which ultimately correlated with his severe jaw pain. (3) Palpitations: Code(s): R00.2 - Palpitations Category: Medical Plan: As above (4) Abnormal nuclear stress test: Code(s): R94.39 - Abnormal result of other cardiovascular function study Category: Medical Plan: As above - false-positive (5) S/P cardiac catheterization: Comment: 02/11/2024 normal coronary arteries Code(s): Z98.890 - Other specified postprocedural states Category: Surgical Plan: As above Plan Time spent on chart review, documentation, interview and assessment Patient was informed and verbally consented to the use of an ambient scribe for clinic note documentation during this visit. During our consultation, I explained the management and treatment options for atrial fibrillation, emphasizing the potential benefits and procedural specifics of catheter ablation. I discussed that post-procedural recovery may include continued medication use while observing for any arrhythmia recurrence during healing, usually ranging from three to six months. The referral to the electrophysiology group at [facility] was agreed upon, with anticipated follow-up within the coming weeks to discuss candidacy for ablation. I addressed all of the patient's questions, explaining the next steps and what to expect in the context of treatment progress. Orders: Referrals Cardiac Electrophysiology Referral I48.0 - Paroxysmal atrial fibrillation Patient Instructions: - Avoid grapefruit juice while on flecainide - Follow up with the electrophysiology group at [facility] as scheduled - Continue all current medications as prescribed - Monitor for any recurring symptoms of palpitations or new symptoms - Report any adverse reactions or symptoms immediately - Engage in light physical activity as tolerated - Avoid any new medications or dietary changes without consulting Coding Level of Care Code Est Pt Level 4 (30556) Complex EM visit Add On G2211 Diagnoses Paroxysmal atrial fibrillation I48.0 Atypical chest pain R07.89 Palpitations R00.2 Abnormal nuclear stress test R94.39 S/P cardiac catheterization Z98.890 CPT Codes EKG - CPT: 83439-[id number], Complete ([id number]) Time Spent (min) 32
== END 2024-08-27 14:37 | disposition home or self-care (01) ==
LOC: HO.HCS 13:47
PROVIDERS: PCP Internal Medicine; Visit Provider Nurse Practitioner Family
DX: I48.0 Paroxysmal atrial fibrillation (principal)
CPT/HCPCS: 93010; 99214; G2211

== ENCOUNTER → 2024-08-27 13:47 | Outpatient (BNVA) | payer MEDICARE, SELFPAY | PROVIDERS: PCP Internal Medicine; Visit Provider Nurse Practitioner Family | DX: I48.0 Paroxysmal atrial fibrillation (principal); R07.89 Other chest pain; R00.2 Palpitations; R94.39 Abnormal result of other cardiovascular function study; Z98.890 Other specified postprocedural states | CPT/HCPCS: 93005; 99212 ==

== ENCOUNTER 2025-01-12 12:43 | Outpatient (AMB) | payer MEDICARE, SELFPAY ==
--- NOTE | 2025-01-12 12:58 | MHC.OFFVIS ---
Vital Signs 01/12/25 12:59 Height 5 ft 10 in Weight 185 lb 10.067 oz BMI 26.6 BP 114/62 Blood Pressure Location Lt brachial Position Sitting Pulse 49 L Pulse Source Monitor Intake Visit Reasons: 4m follow up Communications Lead Required: No Allergies celecoxib (From Celebrex) Allergy (Mild, Verified 01/12/25 13:01) Cough Medication List - Last Reconciled 01/12/25 by Brandi Leone, PELON-C metoprolol succinate ER (Toprol XL) 25 mg PO DAILY rivaroxaban (Xarelto) 20 mg PO DAILY zolpidem 2.5 mg PO BEDTIME PRN HPI HPI 4m follow up: Details: Donald is a 79-year-old male with no significant cardiac risk factors who was experiencing episodes of significant bilateral jaw pain in the last year. He underwent cardiac testing including cardiac catheterization which showed normal coronary arteries. Ultimately a cardiac event monitor did show paroxysmal atrial fibrillation which correlated with his symptoms. He was treated with flecainide and metoprolol for rhythm control and put on Xarelto for anticoagulation. On last visit he was referred to electrophysiology and was evaluated by Dr. Cherry. He then underwent AFib ablation on 12/22/2024 and now presents for follow-up. Today he reports he stopped flecainide as directed after his AFib ablation. Since then he has notice brief episodes of heart palpitations. He has not had recurrent jaw discomfort. No chest discomfort, shortness of breath, lightheadedness, leg swelling. He reports good activity tolerance and is currently pleased with how he is doing. He was instructed by Dr. Cherry to get a smart watch or cardiac monitoring device so that he can she keep track of his heart rhythm. He has not done this yet. He has good activity tolerance. He has had no bleeding issues. [facility] Medical History History of trigger finger Surgical History History of cardiac ablation for atrial fibrillation Hx of cholecystectomy Hx of shoulder surgery History of back surgery Hx of hernia repair Family History Father No problems noted. Mother No problems noted. Social History Patient Tobacco Use Status: Never used Tobacco Review of Systems Const All systems reviewed & are unremarkable except as noted in HPI and below ENT Denies dizziness Card Denies chest pain, Denies chest pain at rest, Denies chest pain with activity, Denies rapid heart rate, Denies pedal edema, Denies edema, Denies leg edema, Denies lightheadedness, Denies palpitations, Denies dyspnea, Denies dyspnea on exertion and Denies orthopnea Resp Denies cough, Denies dyspnea and Denies dyspnea on exertion GI Denies hematochezia and Denies change in stool character Musc Denies abnormal gait, Denies limited range of motion, Denies muscle cramps, Denies muscle weakness, Denies numbness, Denies radiating pain into limb, Denies stiffness and Denies tingling Neuro Denies abnormal gait, Denies dizziness, Denies numbness and Denies tingling Endo Denies palpitations Physical Exam Vital Signs: Last Vital Signs Pulse 49 L 01/12/25 12:59 BP 114/62 01/12/25 12:59 BMI result Body Mass Index 26.6 Const General: cooperative, healthy appearing, comfortable and no acute distress Orientation/consciousness: patient oriented x3 Neck Neck: Yes normal visual inspection and Yes no JVD Resp Effort & Inspection: normal respiratory effort Auscultation: clear to auscultation bilaterally, no crackles, no rales, no rhonchi and no wheezes Cardio Rate: bradycardic Heart sounds: S1 normal heart sound present, S2 normal heart sound present, no gallops, no murmurs and no rubs Neuro General: patient oriented x3 Extrem General: Yes normal to inspection, No no pedal edema and No calf tenderness Psych Appearance: grossly normal Mental Status: mental status grossly normal Speech and movement: Normal speech and movement present Office Procedures EKG Details: Today, read by me, sinus bradycardia, rate 49, QTC 395 milliseconds [id number], Complete Assessment & Plan Assessment & Plan (1) Paroxysmal atrial fibrillation: Code(s): I48.0 - Paroxysmal atrial fibrillation Category: Medical Plan: Newer finding of paroxysmal atrial fibrillation, symptomatic with heart palpitations and jaw pain. He was treated with rhythm control using metoprolol and flecainide. Chads Vasc score of 2 with age. Put on Xarelto for anticoagulation. He was evaluated [place] Dr. Cherry, [facility] and underwent atrial fibrillation ablation 12/22/2024. Brief intermittent heart palpitations since that time. He is off flecainide and remains on metoprolol XL 25 mg daily and Xarelto. EKG done today showing sinus bradycardia, rate 49, asymptomatic. He was ambulated in the aviles using sat monitor and heart rate quickly shorty to 60. No med changes made at this time. He will get home monitoring type device to assess for recurrent PAF. He has EP follow-up in 3 months. Will arrange for cardiology office visit here in 6 months. (2) Atypical chest pain: Code(s): R07.89 - Other chest pain Category: Medical Plan: Prior reports of Atypical sounding discomfort, bilateral severe jaw pain that is briefly preceded by heart palpitation. Cardiac evaluation included echocardiogram done 09/19/2023 showing EF 55-60%, mild increase in the RV size, left atrium moderately dilated, mild MR, ascending aorta 3.9 cm. Exercise nuclear stress test done 12/12/2023 with exercise 9 minutes with [id number] shortness of breath, no chest discomfort, no EKG changes of ischemia, nuclear imaging showed infarct in the distal inferior lateral wall with minimal ischemia. He then underwent a diagnostic cardiac catheterization showing normal coronary arteries. Nuclear stress test felt to be false positive. For further evaluation he had a cardiac event monitor which did show episodes of paroxysmal atrial fibrillation which ultimately correlated with his severe jaw pain. (3) Palpitations: Code(s): R00.2 - Palpitations Category: Medical Plan: As above (4) Abnormal nuclear stress test: Code(s): R94.39 - Abnormal result of other cardiovascular function study Category: Medical Plan: As above - false-positive (5) S/P cardiac catheterization: Comment: 02/11/2024 normal coronary arteries Code(s): Z98.890 - Other specified postprocedural states Category: Surgical Plan: As above Plan .We discussed the presence atrial fibrillation episodes post-ablation and the importance of monitoring with a smartwatch or [employer]. He will keep the follow-up with Dr. Cherry and call him if he has prolonged episodes of AFib. The patient was advised to continue metoprolol and Xarelto, with potential discontinuation based on future monitoring results. We also reviewed the resolution of his prior jaw discomfort and that it was likely related to atrial fibrillation. Patient Instructions: - Continue taking metoprolol and Xarelto as prescribed. - Consider using a smartwatch or [employer] for atrial fibrillation monitoring. - Report any new or worsening symptoms to your healthcare provider. - Follow up with Dr. Cherry as scheduled. - Follow up this office in 6 mo Patient was informed and verbally consented to the use of an ambient scribe for clinic note documentation during this visit. Visit time spent on chart review, interview, assessment, orders, documentation. Coding Level of Care Code Est Pt Level 4 (14645) Complex EM visit Add On G2211 Diagnoses Paroxysmal atrial fibrillation I48.0 Atypical chest pain R07.89 Palpitations R00.2 Abnormal nuclear stress test R94.39 S/P cardiac catheterization Z98.890 CPT Codes EKG - CPT: [id number], Complete ([id number]) Time Spent (min) 28
[2025-01-12 12:59] VITALS: BP 114/62; PULSE 49; BMI 26.6
--- OUTSIDE RECORDS SUMMARY | 2025-01-12 16:42 | XMS_ITS | Clinical Summary ---
Author Organization [facility] Address [address] [place] [phone] Phone Care Team Providers Care Utilization Review Nurse Name Role Phone Kevin Patel MD Unavailable [phone] Kevin Patel MD Primary Care Provider [phone] Allergies Active Allergy Reactions Criticality Noted Date Comments Celecoxib Other (See Comments) 05/17/2017 Flu-like sx's Citalopram Diarrhea 05/17/2017 Medications cholecalciferol (VITAMIN D3) 2,000 unit tablet Take 2,000 Units by mouth daily. Active metoprolol succinate (TOPROL-XL) 25 MG 24 hr tablet Take 1 tablet by mouth every morning. 09/03/19 24 Active XARELTO 20 mg Tab Take 20 mg by mouth daily with dinner. 03/19/20 24 Active flecainide (TAMBOCOR) 100 MG tablet Take 1 tablet by mouth 2 (two) times a day. 03/19/20 24 Active fexofenadine (BENJAMIN ALLERGY) 180 MG tablet Take 180 mg by mouth as needed. 02/11/20 24 Active sildenafiL (VIAGRA) 100 mg tabletIndication s:Erectile dysfunction, unspecified erectile dysfunction type TAKE 1 TABLET BY MOUTH NEEDED DIRECTED 6 tablet 9 08/27/19 25 Active zolpidem (AMBIEN) 5 MG tabletIndication s:Insomnia TAKE 1 TABLET(5 MG) BY MOUTH EVERY NIGHT AT BEDTIME NEEDED 30 tablet 3 12/26/19 25 Active oxyCODONE 5 MG immediate release tabletIndication s:Chronic bilateral low back pain without sciatica,terminal superintendent prescription opiate use Take 1 tablet (5 mg total) by mouth every 8 (eight) hours as needed for pain (specific location in comments) (low back pain). Partial fill ok 30 tablet 12/30/19 25 Active zolpidem (AMBIEN) 5 MG tabletIndication s:Insomnia Take 1 tablet (5 mg total) by mouth nightly at bedtime as needed. 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 Partial fill ok 30 tablet 10/14/19 25 025 Discontinued(Re order) Active Problems Problem Noted Date Diagnosed Date [...] distal inferolateral with minimum reversibility12/12/23 Nuc med C ordered by Dr. french Chronic bilateral low [...] Encounters Date Type Department Care Team Description 12/29/2024 Refill [facility] Internal Medicine [address] [place] [address] Kevin Patel MD Medication Refill 12/23/2024 Refill [facility] Internal Medicine [address] [place] [address] Kevin Patel MD Medication Refill 11/18/2024 Orders Only [facility] Internal Medicine [address] [place] [address] Enrique Nicholson MD 10/13/2024 1:00 PM EDT Office Visit [facility] Internal Medicine [address] [place] [address] Kevin Patel MD Routine general medical examination at a health care facility (Primary Dx); Chronic bilateral low back pain without sciatica; terminal superintendent prescription opiate use; Ocular myasthenia gravis; Pure hypercholesterolemia; Paroxysmal A-fib; Impaired fasting blood sugar 10/12/2024 Orders Only [facility] Internal Medicine [address] [place] [address] Enrique Nicholson MD from Last 3 Months Immunizations Immunization Administration Dates Next Due COVID-19 (Pre-02/18) Pfizer Vaccine, mRNA, PF 07/24/2020,07/03/2020 INFLUENZA, SPLIT VIRUS, TRIV ALENT W/ PRESERVATIVE IM 01/08/2017 Influenza High-Dose Quadriva lent Preservative Free IM 01/04/2022,12/15/2019 Influenza High-Dose Trivalen t Preservative Free IM 01/14/2024,12/23/2017,01/08/2017,12/26,01/07/2015,12/31/2013 Influenza Quadrivalent Adjuv anted Preservative Free IM 01/23/2023,01/05/2021 Influenza Trivalent Adjuvant ed Preservative free IM 01/13/2019 Influenza, Unspecified Formulation 01/25/2010, Pneumococcal conjugate PCV13 [...] ecorded Denied Basic Needs Not on file 10/06/2024 In the past 12 months have y ou been in a relationship with a person who hurts, threatens, or tries to control you? No 10/06/2024 Worried food would run out Not on file 10/06 In the past 12 months have y ou been in a relationship with a person who hurts, threatens, or tries to control you? No 10/06/2024 Sex and Gender Information Value Date Recorded Sex Assigned at Not on file Legal Sex Male 10:07 PM EDT Gender Identity Not on file Sexual Orientation Not on file Last Filed Vital Signs Vital Sign Reading Time Taken Comments Blood Pressure 103/60 10/13/2024 12:52 PM EDT Pulse 54 10/13/2024 12:52 PM EDT Temperature 36.4 C (97.6 F) 10/13/2024 12:52 PM EDT Respiratory Rate 18 10/13/2024 12:52 PM EDT Oxygen Saturation 98% 10/13/2024 12:52 PM EDT Inhaled Oxygen Concentration - - Weight 84.1 kg (185 lb 6.4 oz) 10/13/2024 12:52 PM EDT Height 178.1 cm (5' 10.12 ) 10/13/2024 12:52 PM EDT Body Mass Index 26.51 10/13/2024 12:52 PM EDT Plan of Treatment Upcoming Encounters Date Type Department Care Team (Late st Contact Info) Description 10/13/2025 11:00 AM EDT Office Visit [facility] Internal Medicine [address] [place] [address] Kevin Patel MD [address] [place] [address] [email or web address] Health Maintenance Due Date Last Done Comments COLOGUARD 1991 FIT TEST 1991 FOBT 1991 SIGMOIDOSCOPY 1991 VIRTUAL COLONOSCOPY 1991 INFLUENZA VACCINE (#1) 2024 , 01/23/2023, 01/23/2023, Additional history exists COVID-19 VACCINE ( season) 2024 01/14/2024, 07/12/2023, 01/23/2023, Additional history exists CREATININE LEVEL 05/08/2025 05/08/2024, , 01/10/2023, Additional history exists COLONOSCOPY 09/15/2025 09/15/2020, 06/16/2009 COLORECTAL CANCER SCREENING 09/15/2025 DEPRESSION SCREENING 10/06/2025 10/06/2024, 09/29/19 23 LIPID PANEL 05/08/2029 05/08/2024, 06/0 09/2022, 10/02/2022, Additional history exists Adult Td,Tdap Booster 11/21/2033 11/22/2023, 013 HEPATITIS C SCREENING Completed 04/10/2019, 019 ZOSTER VACCINES Completed 10/08/2019, 02/0 09/2019, 02/13/2014 RSV VACCINE Completed 02/06/2023 PNEUMOCOCCAL VACCINES (50+ years) Completed 10/08/2023, 03/14/2015, 09/19/2012 SMOKING STATUS SCREENING (Once After 26 Yrs) Completed 10/13/2024 HEPATITIS A VACCINES Aged Out No long er eligible based on patient's age to complete this topic HIB VACCINES Aged Out No longer eligi ble based on patient's age to complete this topic MENINGOCOCCAL VACCINES (ACWY) Aged Out No longer eligible based on patient's age to complete this topic MENINGOCOCCAL VACCINES (B) Aged Out N o longer eligible based on patient's age to complete this topic Medical Devices Not on file Procedures Procedure Name Priority Date/Time Associated Diagnosis Comments OUTSIDE ECG Routine 11/12/2024 2:32 PM EDT LIPID PANEL Routine 05/08/2024 8:50 AM EST Pure hypercholesterolemia COMPREHENSIVE METABOLIC PANEL Routine 05/08/2024 8:50 AM EST Chronic bilateral low back pain without sciatica Bilateral hip pain Pure hypercholesterolemia NSAID long-term use HM COLONOSCOPY FOR RESULT ENTRY ONLY Routine 09/15/2020 HEPATITIS C ANTIBODY, QUALITATIVE Routine 04/10/2019 9:43 AM EST Need for hepatitis C screening test from Last 3 Months or Most Recently Relevant to Health Maintenance Results * Outside ECG Report Only (11/12/2024 2:32 PM EDT) us Historical Provider ECG ORDERABLES Final Res ult * (ABNORMAL) Comprehensive metabolic panel (05/08/2024 8:50 [...] 8:50 AM EST 05/08/2024 8:58 AM EST us Kevin Patel MD LAB BLOOD ORDERABLES Final Re sult Performing Organization Address City/[facility] Co de Phone Number [address] [phone] * Lipid panel (05/08/2024 8:50 AM EST) HDL 42 mg/dL [facility] Comment: Interpretation <40 mg/dL: Low HDL cholesterol (major [...] CARDIAC RISK RATIO 4.2 3.4 - 5.0 [facility] Blood 05/08/2024 8:50 AM EST 05/08/2024 8:58 AM EST us Kvein Patel MD LAB BLOOD ORDERABLES Final Re sult [facility] [address] [place] [address] * COLONOSCOPY FOR RESULT ENTRY ONLY (09/15/2020) Enrique Provider HEALTH MAINTENANCE Final Result * Hepatitis C antibody, qualitative (04/10/2019 9:43 AM EST) HCV NON-REACTIV E NON-REACTI VE [facility] Blood 04/10/2019 9:43 AM EST 04/10/2019 9:47 AM EST Kevin Patel MD LAB BLOOD ORDERABLES Final Re sult Performing Organization Address [facility] Co de Phone Number [address] [phone] from Last 3 Months or Most Recently Relevant to Health Maintenance Insurance MEDICARE PART A & B MEDICARE PART A & B MEDICARE PART A & B MEDICARE PART A & B MEDICARE PART A & B MEDICARE PART A & B MEDICARE PART A & B MEDICARE PART A & B MEDICARE PART A & B Care Teams Utilization Review Nurse Relationship Specialty Start Date End Date Kevin Patel MD [address] [place] [address] [email or web address] PCP - General Internal Medicine 02/25/17 Kevin Patel MD [address] [place] [address] Insurance Assigned Provider 08/03/23 Additional Source Comments The information contained in this document represents components of the legal health record. It is not the complete legal health record.[facility]
== END 2025-01-12 13:28 | disposition home or self-care (01) ==
LOC: HO.HCS 12:44
PROVIDERS: PCP Internal Medicine; Visit Provider Nurse Practitioner Family
DX: I48.0 Paroxysmal atrial fibrillation (principal); R07.89 Other chest pain; R00.2 Palpitations; R94.39 Abnormal result of other cardiovascular function study; Z98.890 Other specified postprocedural states
CPT/HCPCS: 93010; 99214; G2211

== ENCOUNTER → 2025-01-12 12:43 | Outpatient (BNVA) | payer MEDICARE, SELFPAY | PROVIDERS: PCP Internal Medicine; Visit Provider Nurse Practitioner Family | DX: I48.0 Paroxysmal atrial fibrillation (principal); R07.89 Other chest pain; R00.2 Palpitations; R94.39 Abnormal result of other cardiovascular function study | CPT/HCPCS: 93005; 99212 ==